=== PATIENT | female | born 1970 | race American Indian/Alaskan Native ===

== ENCOUNTER 2016-09-01 16:13 | Emergency (ER) | payer MEDICAID, OTHER ==
[2016-09-01 16:24] VITALS: BP 110/71
--- NOTE | 2016-09-01 16:43 | EDM.PDOC ---
ED HPI GENERAL MEDICAL PROBLEM - General Chief Complaint: General Stated Complaint: WEAK/SICK COUPLE DAYS Time Seen by Provider: 09/01/16 16:33 Source of Information: Reports: Patient, Family History Limitations: Reports: No limitations - History of Present Illness INITIAL COMMENTS - FREE TEXT/NARRATIVE: Mom states that pt has been "feeling sick" for the past few days and not eating. States that she ate yesterday but has not eaten today. States that she just feels weak. c/o abdominal pain Onset Date: 08/28/16 Location: Reports: abdomen Quality: Reports: Ache Severity: moderate Improves with: Reports: None Worsens with: Reports: None Associated Symptoms: Reports: cough, malaise - Related Data Allergies Allergy/AdvReac Type Severity Reaction Status Date / Time Penicillins Allergy Rash Verified 09/01/16 16:18 Home Meds: Home Meds Clopidogrel [Plavix] 75 mg PO DAILY 10/27/13 [History] Docusate Sodium [Dulcolax Stool Softener] 100 mg PO DAILY 08/13/14 [History] Lisinopril [Lisinopril] 10 tab PO DAILY 08/13/14 [History] Sertraline HCl [Zoloft] 100 mg PO DAILY 08/13/14 [History] metFORMIN HCl [Metformin HCl] 1,000 mg PO QAM 08/13/14 [History] Aspirin [Halfprin] 81 mg PO DAILY 12/09/14 [History] Gabapentin [Neurontin] 100 mg PO TID 12/09/14 [History] Simvastatin [Zocor] 20 mg PO BEDTIME 12/09/14 [History] metFORMIN HCl [Metformin HCl] 500 mg PO BEDTIME 12/09/14 [History] Carvedilol 6.25 mg PO DAILY 02/27/16 [History] Cholecalciferol (Vitamin D3) [Vitamin D3] 1,000 units PO DAILY 02/27/16 [History ] Spironolactone [Aldactone] 25 mg PO DAILY 02/27/16 [History] Past Medical History HEENT History: Reports: None Cardiovascular History: Reports: CAD, High cholesterol, Hypertension, [place] Other Cardiovascular History: family says she was on blood thinners for years, also was on some experimental stem cell med they don't know all the details Other Respiratory History: since she had her stroke she smokes a "lot now" Gastrointestinal History: Reports: None Genitourinary History: Reports: UTI, recurrent 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 Musculoskeletal History: Reports: Other (see below) Other Musculoskeletal History: Pt has a history of a stroke and can not move right arm, can stand on right leg, but can not walk Neurological History: Reports: CVA, Neuropathy, diabetic, Seizure, Speech problems Psychiatric History: Reports: Anxiety, Depression Endocrine/Metabolic History: Reports: Diabetes, type II Dermatologic History: Reports: None - Past Surgical History HEENT Surgical History: Reports: None Cardiovascular Surgical History: Reports: Carotid stents GI Surgical History: Reports: None Female Surgical History: Reports: None Musculoskeletal Surgical History: Reports: Shoulder surgery Dermatological Surgical History: Reports: None Social & Family History - Family History Cardiac: Reports: Afib, CAD, Heart failure, High cholesterol, Hypertension, CT, Stent Respiratory: Reports: Asthma, COPD, Sleep apnea GI: Reports: Cholelithiasis : Reports: Renal disease/insufficiency Musculoskeletal: Reports: Arthritis Neurological: Reports: CVA Endocrine/Metabolic: Reports: Diabetes, type II, Obesity/MBI 30+ - Tobacco Use Smoking Status *Q: Never Smoker Years of Tobacco use: 24 Packs/Tins Daily: 0.5 Second Hand Smoke Exposure: No - Caffeine Use Caffeine Use: Reports: None - Alcohol Use Days Per Week of Alcohol Use: 0 - Recreational Drug Use Recreational Drug Use: No Drug Use in Last 12 Months: Yes Recreational Drug Type: Reports: Marijuana/Hashish Recreational Drug Use Frequency: Daily - Living Situation & Occupation Living situation: Reports: with family Occupation: disabled ED ROS GENERAL - Review of Systems Review Of Systems: See Below Constitutional: Reports: malaise, weakness Respiratory: Reports: Cough Cardiovascular: Reports: No symptoms GI/Abdominal: Reports: Abdominal pain Musculoskeletal: Reports: no symptoms (right sided weakenss from previous stroke ) Skin: Reports: pallor Neurological: Reports: No Symptoms ED EXAM, GENERAL - Physical Exam Exam: See Below Exam Limited By: No limitations General Appearance: alert, WD/WN, no apparent distress Eye Exam: bilateral eye: EOMI, normal inspection, PERRL Ear Exam: left ear: TM dull, right ear: TM normal, bilateral ear: auricle normal , canal normal Throat/Mouth: Normal inspection, Normal lips, Normal teeth, Normal gums, Normal oropharynx, Normal voice, No airway compromise Neck: normal inspection, supple, non-tender, full range of motion Respiratory/Chest: no respiratory distress, lungs clear, normal breath sounds, no accessory muscle use, chest non-tender Cardiovascular: normal peripheral pulses, regular rate, rhythm, no edema, no gallop, no JVD, no murmur, no rub GI/Abdominal: normal bowel sounds, soft, no organomegaly, no distention, no abnormal bruit, no mass, tender (lower abdomen) Neurological: alert, oriented, CN II-XII intact, normal cognition, normal gait, normal reflexes, no motor/sensory deficits Skin Exam: Pallor Course - Vital Signs Last Recorded V/S: Last Vital Signs Temp 97.3 F 09/01/16 16:23 Pulse 102 H 09/01/16 16:23 Resp 26 H 09/01/16 16:23 BP 110/71 09/01/16 16:23 Pulse Ox 95 09/01/16 16:23 - Orders/Labs/Meds Orders: Active Orders 24 hr Category Date Time Status CULTURE STREP A CONFIRMATION [] Stat Lab 09/01/16 17:00 Results STREP SCRN A RAPID W CULT CONF [] Stat Lab 09/01/16 17:00 Results Sodium Chloride 0.9% [Saline Flush] Med 09/01/16 16:48 Active 10 ml FLUSH ASDIRECTED PRN Saline Lock Insert [OM.PC] Stat Oth 09/01/16 16:47 Ordered Medication Orders Sodium Chloride (Saline Flush) 10 ml FLUSH ASDIRECTED PRN PRN Reason: Keep Vein Open Last Admin: 09/01/16 17:32 Dose: 10 ml Labs: Laboratory Tests 09/01/16 09/01/16 09/01/16 Range/Units 17:00 17:00 17:00 WBC 18.3 H (5.0-10.0) 10^3/uL RBC 4.05 L (4.2-5.4) 10^6/uL Hgb 8.9 L (12.0-16.0) g/dL Hct 28.3 L (37.0-47.0) % MCV 69.9 L (80-100) fL MCH 22.0 L (27.0-34.0) pg MCHC 31.4 L (33.0-35.0) g/dL Plt Count 286 (150-450) 10^3/uL Neut % (Auto) 85.8 H (42.2-75.2) % Lymph % (Auto) 7.3 L (20.5-50.1) % [place] % (Auto) 6.6 (2-8) % Eos % (Auto) 0.1 L (1.0-3.0) % Baso % (Auto) 0.2 (0.0-1.0) % PT 10.4 (9.0-12.0) SEC INR 1.0 (0.9-1.2) APTT 24.6 (22.0-34.0) SEC Sodium 132 L (135-145) mmol/L Potassium 3.7 (3.6-5.0) mmol/L Chloride 97 L (101-111) mmol/L Carbon Dioxide 20.0 L (21.0-31.0) mmol/L Anion Gap 18.7 BUN 12 (7-18) mg/dL Creatinine 0.7 (0.6-1.3) mg/dL Est Cr Clr Drug Dosing TNP Estimated GFR (MDRD) > 60 Glucose 239 H (74-105) mg/dL Calcium 8.6 (8.4-10.2) mg/dl HCG, Qual Negative Urine Color (YELLOW) Urine Appearance (CLEAR) Urine pH (5.0-9.0) Ur Specific [place] (1.005-1.030) Urine Protein (NEGATIVE) Urine Glucose (UA) (NEGATIVE) Urine Ketones (NEGATIVE) Urine Occult Blood (NEGATIVE) Urine Nitrite (NEGATIVE) Urine Bilirubin (NEGATIVE) Urine Urobilinogen (0.2-1.0) mg/dL Ur Leukocyte Esterase (NEGATIVE) Urine RBC /HPF Urine WBC (0-5/HPF) /HPF Ur Epithelial Cells /HPF Urine Bacteria (0-FEW/HPF) /HPF 09/01/16 Range/Units 17:15 WBC (5.0-10.0) 10^3/uL RBC (4.2-5.4) 10^6/uL Hgb (12.0-16.0) g/dL Hct (37.0-47.0) % MCV (80-100) fL MCH (27.0-34.0) pg MCHC (33.0-35.0) g/dL Plt Count (150-450) 10^3/uL Neut % (Auto) (42.2-75.2) % Lymph % (Auto) (20.5-50.1) % [place] % (Auto) (2-8) % Eos % (Auto) (1.0-3.0) % Baso % (Auto) (0.0-1.0) % PT (9.0-12.0) SEC INR (0.9-1.2) APTT (22.0-34.0) SEC Sodium (135-145) mmol/L Potassium (3.6-5.0) mmol/L Chloride (101-111) mmol/L Carbon Dioxide (21.0-31.0) mmol/L Anion Gap BUN (7-18) mg/dL Creatinine (0.6-1.3) mg/dL Est Cr Clr Drug Dosing Estimated GFR (MDRD) Glucose (74-105) mg/dL Calcium (8.4-10.2) mg/dl HCG, Qual Urine Color Yellow (YELLOW) Urine Appearance Cloudy (CLEAR) Urine pH 5.5 (5.0-9.0) Ur Specific [place] 1.025 (1.005-1.030) Urine Protein 100 H (NEGATIVE) Urine Glucose (UA) 500 H (NEGATIVE) Urine Ketones Negative (NEGATIVE) Urine Occult Blood Moderate H (NEGATIVE) Urine Nitrite Positive H (NEGATIVE) Urine Bilirubin Negative (NEGATIVE) Urine Urobilinogen 1.0 (0.2-1.0) mg/dL Ur Leukocyte Esterase Small H (NEGATIVE) Urine RBC 0-5 /HPF Urine WBC >100 H (0-5/HPF) /HPF Ur Epithelial Cells Moderate H /HPF Urine Bacteria Many H (0-FEW/HPF) /HPF Meds: Medications Generic Name Dose Route Start Last Admin Trade Name Freq PRN Reason Stop Dose Admin Sodium Chloride 10 ml 09/01/16 16:48 09/01/16 17:32 Saline Flush FLUSH 10 ml ASDIRECTED PRN Administration Keep Vein Open Discontinued Medications Generic Name Dose Route Start Last Admin Trade Name Freq PRN Reason Stop Dose Admin Sodium Chloride 1,000 mls @ 999 mls/hr 09/01/16 16:48 09/01/16 17:33 Normal Saline IV 09/01/16 17:48 999 mls/hr .BOLUS ONE Administration Iopamidol 100 ml 09/01/16 16:59 09/01/16 17:12 Isovue-300 (61%) IVPUSH 09/01/16 17:00 100 ml ONETIME ONE Administration Ketorolac Tromethamine 30 mg 09/01/16 16:48 09/01/16 17:32 Toradol IVPUSH 09/01/16 16:49 30 mg ONETIME ONE Administration - Radiology Interpretation Free Text/Narrative:: 1.5 cm thrombus to left ventricle per [facility]. Known thrombus per [facility]. Departure - Departure Time of Disposition: 18:34 Disposition: Home, Self-Care 01 Condition: good Clinical Impression: UTI, Urinary tract infectious disease UTI (urinary tract infection) Qualifiers: Urinary tract infection type: acute cystitis Hematuria presence: without hematuria Qualified Code(s): N30.00 - Acute cystitis without hematuria Instructions: Urinary Tract Infection, Adult Forms: ED Department Discharge Additional Instructions: take macrobid twice a day for 1 week. Drink plenty of fluids to help flush the bacteria. Take motrin for pain. follow up in 1 week at clinic. return for worsening symptoms - My Orders Last 24 Hours: My Active Orders 09/01/16 16:47 Saline Lock Insert [OM.PC] Stat 09/01/16 16:48 Sodium Chloride 0.9% [Saline Flush] 10 ml FLUSH ASDIRECTED PRN 09/01/16 17:00 CULTURE STREP A CONFIRMATION [RM] Stat STREP SCRN A RAPID W CULT CONF [RM] Stat - Assessment/Plan Last 24 Hours: My Active Orders 09/01/16 16:47 Saline Lock Insert [OM.PC] Stat 09/01/16 16:48 Sodium Chloride 0.9% [Saline Flush] 10 ml FLUSH ASDIRECTED PRN 09/01/16 17:00 CULTURE STREP A CONFIRMATION [RM] Stat STREP SCRN A RAPID W CULT CONF [RM] Stat
[2016-09-01] MEDS ORDERED: Sodium Chloride 0.9% 10 ML Syringe FLUSH PRN (16:48)
[2016-09-01] MEDS ORDERED: Sodium Chloride 0.9% 1,000 ML IV ONE (16:48)
[2016-09-01] MEDS ORDERED: Ketorolac 30 MG/ML SDV IVPUSH ONE (16:48)
[2016-09-01] MEDS ORDERED: Iopamidol 612 MG/ML 100 ML Bottle IVPUSH ONE (16:59)
[2016-09-01 17:25] LABS: CHLORIDE,CL 97 mmol/L (101-111); SODIUM,NA 132 mmol/L (135-145)
== END 2016-09-01 18:56 | disposition home or self-care (01) ==
LOC: DL.ED 16:13
DX: N30.00 Acute cystitis without hematuria (principal); I25.10 Atherosclerotic heart disease of native coronary artery without angina pectoris; E78.00 Pure hypercholesterolemia, unspecified; I25.2 Old myocardial infarction; F41.9 Anxiety disorder, unspecified; F32.9 Major depressive disorder, single episode, unspecified; E11.9 Type 2 diabetes mellitus without complications; Z98.890 Other specified postprocedural states; Z88.0 Allergy status to penicillin; Z79.899 Other long term (current) drug therapy; Z79.82 Long term (current) use of aspirin
CPT/HCPCS: 36415; 71260; 74177; 80048; 81001; 84703; 85025; 85610; 85730; 87081; 87430; 87804; 96361; 96374; 99285; J1885; J7030; J7050; Q9967

== ENCOUNTER 2016-09-14 01:14 | Emergency (ER) | payer MEDICAID, OTHER ==
[2016-09-14] MEDS ORDERED: Sodium Chloride 0.9% 1,000 ML IV ONE (01:56)
[2016-09-14 02:13] LABS: CHLORIDE,CL 99 mmol/L (101-111); SODIUM,NA 134 mmol/L (135-145)
[2016-09-14] MEDS ORDERED: Levofloxacin/Dextrose 5%-Water 500 MG in Premix Bag 1 BAG IV ONE (02:29)
[2016-09-14] MEDS ORDERED: Famotidine 20 MG/2 ML SDV IVPUSH ONE (02:30)
--- NOTE | 2016-09-14 02:31 | EDM.PDOC ---
ED HISTORY OF PRESENT ILLNESS - General Chief Complaint: Chest Pain Stated Complaint: CHEST PAIN, WEAK Time Seen by Provider: 09/14/16 01:25 Source of Information: Reports: Patient, Family, Old records History Limitations: Reports: Physical impairment (Prior CVA, Difficulty with word find, limited verbalization) - History of Present Illness INITIAL COMMENTS - FREE TEXT/NARRATIVE: Ed with Mother with initial c/o of chest pain at home, able to describe as burning in chest, Mother notes seen in ED 2 weeks ago and diagnosed with UTI and placed on Macrobid. Decreased appetite. Increasing weakness over past 2 weeks. Patient nods yes with question of stools being black. Mom notes intermittent c/o of abdominal pain since last visit and no change since being on abx. No fever but always cold. Smoker since CVA. Remote hx of AAA on blood thinners for 4 years then few months after then CVA due to "clot in back of head " and heart attack. Stents in heart. CT of chest done on 09/01 notes 1.5cm thrombus in left ventricle apex. Only comparison available of Chest in from 2006. No available echo. Mom does not recall being told of clot in heart prior. Mother sets up medications for patient and monitors, States patient is compliant with meds. Patient points to epigastric and lower abdominal area for pain location. Mom reported last nca certified concierge recommended pacemaker for patient due to "weakness" admits not following up as patient did not want to have pacemaker. Seizure hx after CVA. Last one year ago. No seizure meds. Timing/Duration: Reports: Day(s): Severity: moderate Location, General: Reports: chest, abdomen Quality: Reports: Burning Worsens with: Reports: Eating Associated Symptoms (General): Reports: chest pain, cough (2 weeks ago), fever/ chills (chills), loss of appetite, malaise, weakness - Related Data Allergies/ADRs: Allergies Allergy/AdvReac Type Severity Reaction Status Date / Time Penicillins Allergy Rash Verified 09/14/16 01:29 Home Meds: Home Meds Clopidogrel [Plavix] 75 mg PO DAILY 10/27/13 [History] Docusate Sodium [Dulcolax Stool Softener] 100 mg PO DAILY 08/13/14 [History] Lisinopril [Lisinopril] 10 tab PO DAILY 08/13/14 [History] Sertraline HCl [Zoloft] 100 mg PO DAILY 08/13/14 [History] metFORMIN HCl [Metformin HCl] 1,000 mg PO QAM 08/13/14 [History] Aspirin [Halfprin] 81 mg PO DAILY 12/09/14 [History] Gabapentin [Neurontin] 100 mg PO TID 12/09/14 [History] Simvastatin [Zocor] 20 mg PO BEDTIME 12/09/14 [History] metFORMIN HCl [Metformin HCl] 500 mg PO BEDTIME 12/09/14 [History] Carvedilol 6.25 mg PO DAILY 02/27/16 [History] Cholecalciferol (Vitamin D3) [Vitamin D3] 1,000 units PO DAILY 02/27/16 [History ] Spironolactone [Aldactone] 25 mg PO DAILY 02/27/16 [History] Past Medical History HEENT History: Reports: None Cardiovascular History: Reports: CAD, High cholesterol, Hypertension, [place] Other Cardiovascular History: family says she was on blood thinners for years, also was on some experimental stem cell med they don't know all the details Other Respiratory History: since she had her stroke she smokes a "lot now" Gastrointestinal History: Reports: None Genitourinary History: Reports: UTI, recurrent 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 Musculoskeletal History: Reports: Other (see below) Other Musculoskeletal History: Pt has a history of a stroke and can not move right arm, can stand on right leg, but can not walk Neurological History: Reports: CVA, Neuropathy, diabetic, Seizure, Speech problems Psychiatric History: Reports: Anxiety, Depression Endocrine/Metabolic History: Reports: Diabetes, type II Dermatologic History: Reports: None - Past Surgical History HEENT Surgical History: Reports: None Cardiovascular Surgical History: Reports: Carotid stents GI Surgical History: Reports: None Female Surgical History: Reports: None Musculoskeletal Surgical History: Reports: Shoulder surgery Dermatological Surgical History: Reports: None Social & Family History - Family History Family Medical History: Noncontributory Cardiac: Reports: Afib, CAD, Heart failure, High cholesterol, Hypertension, [place], Stent Respiratory: Reports: Asthma, COPD, Sleep apnea GI: Reports: Cholelithiasis : Reports: Renal disease/insufficiency Musculoskeletal: Reports: Arthritis Neurological: Reports: CVA Endocrine/Metabolic: Reports: Diabetes, type II, Obesity/MBI 30+ - Tobacco Use Smoking Status *Q: Current Every Day Smoker Years of Tobacco use: 3 Packs/Tins Daily: 20 Second Hand Smoke Exposure: No - Caffeine Use Caffeine Use: Reports: Soda - Alcohol Use Days Per Week of Alcohol Use: 0 - Recreational Drug Use Recreational Drug Use: Yes Drug Use in Last 12 Months: Yes Recreational Drug Type: Reports: Marijuana/Hashish Recreational Drug Use Frequency: Daily Recreational Drug Last Use: 08/31/16 - Living Situation & Occupation Living situation: Reports: with family Occupation: disabled ED ROS GENERAL - Review of Systems Review Of Systems: See Below Constitutional: Reports: chills, weakness, decreased appetite HEENT: Reports: No symptoms Respiratory: Reports: Shortness of Breath, Cough (reolving presnt 2 weeks ago) Cardiovascular: Reports: Chest pain ( burning), Other (dizzy when stand up) Endocrine: Reports: high glucose GI/Abdominal: Reports: Abdominal pain, Black stool, Decreased appetite. Denies : Hematemesis, Nausea : Reports: no symptoms Musculoskeletal: Reports: no symptoms Skin: Reports: pallor Neurological: Reports: Dizziness, Pre-Existing Deficit, Seizure (hx last one year ago), Trouble Speaking, Difficulty Walking, Weakness Hematologic/Lymphatic: Reports: no symptoms ED EXAM, GENERAL - Physical Exam Exam: See Below Exam Limited By: Language barrier General Appearance: alert, mild distress Eye Exam: bilateral eye: EOMI Ears: normal external exam, normal TMs Nose: normal inspection Throat/Mouth: Normal inspection. No: Normal teeth (absent) Head: atraumatic, normocephalic Neck: normal inspection Respiratory/Chest: no respiratory distress, lungs clear, decreased breath sounds (bilateral bases), other (edyta ). No: rales, rhonchi, wheezing Cardiovascular: regular rate, rhythm, no murmur GI/Abdominal: normal bowel sounds, soft, tender (epigastric, suprapubic) (Female) Exam: Other (perirectal area read) Rectal (Female) Exam: Normal rectal tone, Heme - stool Back Exam: normal inspection Extremities: normal range of motion (left), no pedal edema, limited range of motion (right upper) Neurological: alert, oriented, slow to respond, abnormal gait, other (prior speech deficit, contracture right arm, right leg weakness) Psychiatric: flat affect Skin Exam: Warm, Dry, No rash, Pallor Lymphatic: no adenopathy EKG INTERPRETATION Rhythm: NSR Comparison: no change Course - Vital Signs Last Recorded V/S: Last Vital Signs Temp 96.9 F 09/14/16 04:24 Pulse 85 09/14/16 04:24 Resp 21 H 09/14/16 04:24 BP 88/51 L 09/14/16 04:24 Pulse Ox 98 09/14/16 04:24 - Orders/Labs/Meds Orders: Active Orders 24 hr Category Date Time Status CULTURE BLOOD [BC] Stat Lab 09/14/16 01:55 Received CULTURE URINE [RM] Stat Lab 09/14/16 01:50 Received Sodium Chloride 0.9% [Normal Saline] 1,000 ml Med 09/14/16 01:56 Active IV .BOLUS Medication Orders Sodium Chloride (Normal Saline) 1,000 mls @ 150 mls/hr IV .BOLUS ONE Stop: 09/14/16 08:35 Last Admin: 09/14/16 01:59 Dose: 150 mls/hr Labs: Laboratory Tests 09/14/16 09/14/16 09/14/16 Range/Units 01:39 01:39 01:39 WBC 11.4 H (5.0-10.0) 10^3/uL RBC 4.33 (4.2-5.4) 10^6/uL Hgb 9.4 L (12.0-16.0) g/dL Hct 30.9 L (37.0-47.0) % MCV 71.4 L (80-100) fL MCH 21.7 L (27.0-34.0) pg MCHC 30.4 L (33.0-35.0) g/dL Plt Count 467 H (150-450) 10^3/uL Neut % (Auto) 77.6 H (42.2-75.2) % Lymph % (Auto) 16.3 L (20.5-50.1) % [place] % (Auto) 5.2 (2-8) % Eos % (Auto) 0.7 L (1.0-3.0) % Baso % (Auto) 0.2 (0.0-1.0) % PT 11.0 (9.0-12.0) SEC INR 1.1 (0.9-1.2) D-Dimer, Quantitative (0-400) ng/mL Sodium 134 L (135-145) mmol/L Potassium 3.7 (3.6-5.0) mmol/L Chloride 99 L (101-111) mmol/L Carbon Dioxide 25.0 (21.0-31.0) mmol/L Anion Gap 13.7 BUN 16 (7-18) mg/dL Creatinine 0.9 (0.6-1.3) mg/dL Est Cr Clr Drug Dosing TNP Estimated GFR (MDRD) > 60 BUN/Creatinine Ratio 17.77 Glucose 219 H (74-105) mg/dL Lactic Acid (0.5-2.2) mmol/L Calcium 9.1 (8.4-10.2) mg/dl Magnesium 1.6 L (1.8-2.5) mg/dL Total Bilirubin 0.3 (0.2-1.0) mg/dL AST 18 (10-42) IU/L ALT 15 (10-60) IU/L Alkaline Phosphatase 93 (42-121) IU/L Creatine Kinase 21 L (26-174) IU/L Troponin I < 0.02 (0.00-0.02) ng/ml Total Protein 8.6 H (6.7-8.2) g/dl Albumin 3.3 (3.2-5.5) g/dl Globulin 5.3 Albumin/Globulin Ratio 0.62 Amylase 66 (28-100) U/L Lipase 43 (22-51) U/L Urine Color (YELLOW) Urine Appearance (CLEAR) Urine pH (5.0-9.0) Ur Specific [place] (1.005-1.030) Urine Protein (NEGATIVE) Urine Glucose (UA) (NEGATIVE) Urine Ketones (NEGATIVE) Urine Occult Blood (NEGATIVE) Urine Nitrite (NEGATIVE) Urine Bilirubin (NEGATIVE) Urine Urobilinogen (0.2-1.0) mg/dL Ur Leukocyte Esterase (NEGATIVE) Urine RBC /HPF Urine WBC (0-5/HPF) /HPF Ur Epithelial Cells /HPF Urine Bacteria (0-FEW/HPF) /HPF 09/14/16 09/14/16 09/14/16 Range/Units 01:39 01:50 01:55 WBC (5.0-10.0) 10^3/uL RBC (4.2-5.4) 10^6/uL Hgb (12.0-16.0) g/dL Hct (37.0-47.0) % MCV (80-100) fL MCH (27.0-34.0) pg MCHC (33.0-35.0) g/dL Plt Count (150-450) 10^3/uL Neut % (Auto) (42.2-75.2) % Lymph % (Auto) (20.5-50.1) % [place] % (Auto) (2-8) % Eos % (Auto) (1.0-3.0) % Baso % (Auto) (0.0-1.0) % PT (9.0-12.0) SEC INR (0.9-1.2) D-Dimer, Quantitative 1270 H (0-400) ng/mL Sodium (135-145) mmol/L Potassium (3.6-5.0) mmol/L Chloride (101-111) mmol/L Carbon Dioxide (21.0-31.0) mmol/L Anion Gap BUN (7-18) mg/dL Creatinine (0.6-1.3) mg/dL Est Cr Clr Drug Dosing Estimated GFR (MDRD) BUN/Creatinine Ratio Glucose (74-105) mg/dL Lactic Acid 2.7 H (0.5-2.2) mmol/L Calcium (8.4-10.2) mg/dl Magnesium (1.8-2.5) mg/dL Total Bilirubin (0.2-1.0) mg/dL AST (10-42) IU/L ALT (10-60) IU/L Alkaline Phosphatase (42-121) IU/L Creatine Kinase (26-174) IU/L Troponin I (0.00-0.02) ng/ml Total Protein (6.7-8.2) g/dl Albumin (3.2-5.5) g/dl Globulin Albumin/Globulin Ratio Amylase (28-100) U/L Lipase (22-51) U/L Urine Color Yellow (YELLOW) Urine Appearance Cloudy (CLEAR) Urine pH 5.0 (5.0-9.0) Ur Specific [place] 1.025 (1.005-1.030) Urine Protein 100 H (NEGATIVE) Urine Glucose (UA) Negative (NEGATIVE) Urine Ketones Negative (NEGATIVE) Urine Occult Blood Moderate H (NEGATIVE) Urine Nitrite Positive H (NEGATIVE) Urine Bilirubin Small H (NEGATIVE) Urine Urobilinogen 0.2 (0.2-1.0) mg/dL Ur Leukocyte Esterase Moderate H (NEGATIVE) Urine RBC 10-20 H /HPF Urine WBC 50-75 H (0-5/HPF) /HPF Ur Epithelial Cells Many H /HPF Urine Bacteria Many H (0-FEW/HPF) /HPF Meds: Medications Generic Name Dose Route Start Last Admin Trade Name Freq PRN Reason Stop Dose Admin Sodium Chloride 1,000 mls @ 150 mls/hr 09/14/16 01:56 09/14/16 01:59 Normal Saline IV 09/14/16 08:35 150 mls/hr .BOLUS ONE Administration Discontinued Medications Generic Name Dose Route Start Last Admin Trade Name Freq PRN Reason Stop Dose Admin Famotidine 20 mg 09/14/16 02:30 09/14/16 02:35 Pepcid IVPUSH 09/14/16 02:31 20 mg ONETIME ONE Administration Levofloxacin/Dextrose 500 mg/ 100 mls @ 100 mls/hr 09/14/16 02:29 09/14/16 02 :35 Premix IV 09/14/16 03:28 100 mls/hr ONETIME ONE Administration Iopamidol 100 ml 09/14/16 03:29 09/14/16 04:00 Isovue-370 (76%) IVPUSH 09/14/16 03:30 64 ml ONETIME ONE Administration - Radiology Interpretation Free Text/Narrative:: CXR negative, CTA due to elevated D-dimer recommendation for cardiac echo. Prior 1.5 left ventricle thrombus not clearly visualized on today's. Rad report noted change in area size from 1.4 to 2.4cm . Verbal report unable to determine if wall thickening or extension of thrombus. Departure - Departure Time of Disposition: 05:18 Disposition: DC/Tfer to Acute Hospital 02 Reason for Transfer *Q: Other Condition: undetermined Clinical Impression: Elevated d-dimer, [place] infection of genital region, Abnormal chest CT, History of CVA with residual deficit, Hx of myocardial infarction, History of seizures UTI (urinary tract infection) Qualifiers: Urinary tract infection type: acute cystitis Hematuria presence: without hematuria Qualified Code(s): N30.00 - Acute cystitis without hematuria Anemia Qualifiers: Anemia type: unspecified type Qualified Code(s): D64.9 - Anemia, unspecified Diabetes Qualifiers: Diabetes mellitus type: type 2 Diabetes mellitus complication status: with unspecified complications Diabetes mellitus penitentiary insulin use: without rodent exterminator use Qualified Code(s): E11.8 - Type 2 diabetes mellitus with unspecified complications Forms: ED Department Discharge - My Orders Last 24 Hours: My Active Orders 09/14/16 01:50 CULTURE URINE [RM] Stat 09/14/16 01:55 CULTURE BLOOD [BC] Stat 09/14/16 01:56 Sodium Chloride 0.9% [Normal Saline] 1,000 ml IV .BOLUS - Assessment/Plan Last 24 Hours: My Active Orders 09/14/16 01:50 CULTURE URINE [RM] Stat 09/14/16 01:55 CULTURE BLOOD [BC] Stat 09/14/16 01:56 Sodium Chloride 0.9% [Normal Saline] 1,000 ml IV .BOLUS
[2016-09-14] MEDS ORDERED: Iopamidol 755 Mg/ML 100 ML Bottle IVPUSH ONE (03:29)
[2016-09-14 04:48] VITALS: BP 95/51
[2016-09-14] MEDS ORDERED: Sodium Chloride 0.9% 1,000 ML IV SCH (05:30)
--- NOTE | 2016-09-14 13:23 | EKG ---
09/14/2016- ALIN FUCHS - EKG done on 45-year-old female showing sinus rhythm with heart rate of 81 beats per minute. T-wave inversions noted on V2 and V3 with ST changes on V5, V6, and lateral leads. Normal axis. Prolonged QT interval at 493. [facility] /[id number]
== END 2016-09-14 05:47 ==
LOC: DL.ED 01:14
DX: N30.00 Acute cystitis without hematuria (principal); E11.8 Type 2 diabetes mellitus with unspecified complications; D64.9 Anemia, unspecified; B37.89 Other sites of candidiasis; R93.8 Abnormal findings on diagnostic imaging of other specified body structures; R79.89 Other specified abnormal findings of blood chemistry; I25.2 Old myocardial infarction; I25.10 Atherosclerotic heart disease of native coronary artery without angina pectoris; E78.00 Pure hypercholesterolemia, unspecified; I10 Essential (primary) hypertension; F41.9 Anxiety disorder, unspecified; F32.9 Major depressive disorder, single episode, unspecified; F17.210 Nicotine dependence, cigarettes, uncomplicated; Z86.73 Personal history of transient ischemic attack (TIA), and cerebral infarction without residual deficits; Z88.0 Allergy status to penicillin; Z79.84 Long term (current) use of oral hypoglycemic drugs; Z79.82 Long term (current) use of aspirin; Z79.899 Other long term (current) drug therapy; Z87.440 Personal history of urinary (tract) infections
CPT/HCPCS: 36415; 71010; 71275; 80053; 81001; 82150; 82272; 82550; 83605; 83690; 83735; 84484; 85025; 85379; 85610; 87040; 87086; 96365; 96366; 96375; 99285; J1956; J7030; Q9967; 87088; 87186; S0028

== ENCOUNTER 2017-07-26 12:09 | Emergency (ER) | payer MEDICAID, OTHER ==
--- NOTE | 2017-07-26 12:48 | EDM.PDOC ---
ED HPI GENERAL MEDICAL PROBLEM - General Chief Complaint: General Stated Complaint: Anemia. IN BY AMB FROM [facility] [place] Time Seen by Provider: 07/26/17 12:35 Source of Information: Reports: Patient History Limitations: Reports: No Limitations - History of Present Illness INITIAL COMMENTS - FREE TEXT/NARRATIVE: This 46 yo female patient was brought to the ED by [facility] due to a hemoglobin of 6.2 identified at the [facility]. The patient was seen by Dr. 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 According to the [facility], the patient is currently on both Plavix and Zeralto for anticoagulation. The patient is alert and responsive. The patient follows commands well. Onset: Unknown/Unsure Duration: Other Location: Reports: Generalized Severity: Moderate Improves with: Reports: None Worsens with: Reports: None Associated Symptoms: Reports: No Other Symptoms Right Abdomen Pain Score (Numeric/FACES): 8 - Related Data Allergies Allergy/AdvReac Type Severity Reaction Status Date / Time Penicillins Allergy Rash Verified 09/14/16 01:29 Home Meds: Home Meds Clopidogrel [Plavix] 75 mg PO DAILY 10/27/13 [History] Docusate Sodium [Dulcolax Stool Softener] 100 mg PO DAILY 08/13/14 [History] Lisinopril [Lisinopril] 10 tab PO DAILY 08/13/14 [History] Sertraline HCl [Zoloft] 100 mg PO DAILY 08/13/14 [History] metFORMIN HCl [Metformin HCl] 1,000 mg PO QAM 08/13/14 [History] Aspirin [Halfprin] 81 mg PO DAILY 12/09/14 [History] Gabapentin [Neurontin] 100 mg PO TID 12/09/14 [History] Simvastatin [Zocor] 20 mg PO BEDTIME 12/09/14 [History] metFORMIN HCl [Metformin HCl] 500 mg PO BEDTIME 12/09/14 [History] Carvedilol 6.25 mg PO DAILY 02/27/16 [History] Cholecalciferol (Vitamin D3) [Vitamin D3] 1,000 units PO DAILY 02/27/16 [History ] Spironolactone [Aldactone] 25 mg PO DAILY 02/27/16 [History] Past Medical History HEENT History: Reports: None Cardiovascular History: Reports: CAD, High Cholesterol, Hypertension, [place] Other Cardiovascular History: family says she was on blood thinners for years, also was on some experimental stem cell med they don't know all the details Other Respiratory History: since she had her stroke she smokes a "lot now" Gastrointestinal History: Reports: None Genitourinary History: Reports: UTI, Recurrent [employer]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 Musculoskeletal History: Reports: Other (See Below) Other Musculoskeletal History: Pt has a history of a stroke and can not move right arm, can stand on right leg, but can not walk Neurological History: Reports: CVA, Neuropathy, Diabetic, Seizure, Speech Problems Psychiatric History: Reports: Anxiety, Depression Endocrine/Metabolic History: Reports: Diabetes, Type II Dermatologic History: Reports: None - Past Surgical History Cardiovascular Surgical History: Reports: Carotid Stents Musculoskeletal Surgical History: Reports: Shoulder Surgery Social & Family History - Family History Family Medical History: Noncontributory Cardiac: Reports: Afib, CAD, Heart Failure, High Cholesterol, Hypertension, [place], Stent Respiratory: Reports: Asthma, COPD, Sleep Apnea GI: Reports: Cholelithiasis : Reports: Renal Disease/Insufficiency Musculoskeletal: Reports: Arthritis Neurological: Reports: CVA Endocrine/Metabolic: Reports: Diabetes, type II, Obesity/MBI 30+ - Tobacco Use Smoking Status *Q: Current Every Day Smoker Years of Tobacco use: 3 Packs/Tins Daily: 20 Second Hand Smoke Exposure: No - Caffeine Use Caffeine Use: Reports: Soda - Alcohol Use Days Per Week of Alcohol Use: 0 - Recreational Drug Use Recreational Drug Use: Yes Drug Use in Last 12 Months: Yes Recreational Drug Type: Reports: Marijuana/Hashish Recreational Drug Use Frequency: Daily Recreational Drug Last Use: 08/31/16 - Living Situation & Occupation Living situation: Reports: with Family Occupation: Disabled ED ROS GENERAL - Review of Systems Review Of Systems: ROS reveals no pertinent complaints other than HPI. ED EXAM, GENERAL - Physical Exam Exam: See Below Exam Limited By: Other (expresive dysphasia (difficulties coming up with verbal responses)) General Appearance: Alert, WD/WN, No Apparent Distress Eye Exam: Bilateral Eye: EOMI, Normal Inspection, PERRL Ears: Normal External Exam, Normal Canal, Hearing Grossly Normal, Normal TMs Nose: Normal Inspection, Normal Mucosa, No Blood Throat/Mouth: Other (right sided facial droop) Head: Atraumatic, Normocephalic Neck: Normal Inspection, Supple, Non-Tender, Full Range of Motion Respiratory/Chest: No Respiratory Distress, Lungs Clear, Normal Breath Sounds, No Accessory Muscle Use, Chest Non-Tender Cardiovascular: Normal Peripheral Pulses, Regular Rate, Rhythm, No Edema, No Gallop, No JVD, No Murmur, No Rub GI/Abdominal: Normal Bowel Sounds, Soft, Non-Tender, No Organomegaly, No Distention, No Abnormal Bruit, No Mass (Female) Exam: Deferred Extremities: Other (right arm paralysis (post CVA), right leg weakness (but able to lift right leg off bed), patient reports no sensation in right extremities) Neurological: Alert, Oriented Psychiatric: Flat Affect Skin Exam: Warm, Dry, Intact, Normal Color, No Rash Lymphatic: No Adenopathy Course - Vital Signs Last Recorded V/S: Last Vital Signs Temp 36.9 C 07/26/17 12:09 Pulse 95 07/26/17 12:09 Resp 18 07/26/17 12:09 BP 108/65 07/26/17 12:09 Pulse Ox 95 07/26/17 12:09 - Orders/Labs/Meds Orders: Active Orders 24 hr Category Date Time Status DRUG SCREEN URINE BIORAD [URCHEM] Stat Lab 07/26/17 12:33 Ordered RED BLOOD CELLS LP [BBK] Stat Lab 07/26/17 14:01 Ordered TYPE AND SCREEN [BBK] Routine Lab 07/26/17 12:34 Results UA W/MICROSCOPIC [URIN] Stat Lab 07/26/17 12:33 Ordered Labs: Laboratory Tests 07/26/17 07/26/17 07/26/17 Range/Units 12:34 12:34 12:34 WBC 6.7 (5.0-10.0) 10^3/uL RBC 3.36 L (4.2-5.4) 10^6/uL Hgb 6.0 L* D (12.0-16.0) g/dL Hct 22.4 L (37.0-47.0) % MCV 66.7 L D (80-100) fL MCH 17.9 L (27.0-34.0) pg MCHC 26.8 L (33.0-35.0) g/dL Plt Count 325 D (150-450) 10^3/uL Neut % (Auto) 68.4 (42.2-75.2) % Lymph % (Auto) 22.9 (20.5-50.1) % Kane % (Auto) 6.8 (2-8) % Eos % (Auto) 1.6 (1.0-3.0) % Baso % (Auto) 0.3 (0.0-1.0) % PT 9.9 (9.0-12.0) SEC INR 1.0 (0.9-1.2) Sodium 135 (135-145) mmol/L Potassium 3.6 (3.6-5.0) mmol/L Chloride 101 (101-111) mmol/L Carbon Dioxide 24.0 (21.0-31.0) mmol/L Anion Gap 13.6 BUN 9 (7-18) mg/dL Creatinine 0.4 L (0.6-1.3) mg/dL Est Cr Clr Drug Dosing 166.27 mL/min Estimated GFR (MDRD) > 60 BUN/Creatinine Ratio 22.50 Glucose 141 H (74-105) mg/dL Calcium 8.5 (8.4-10.2) mg/dl Total Bilirubin 0.7 (0.2-1.0) mg/dL AST 34 (10-42) IU/L ALT 10 (10-60) IU/L Alkaline Phosphatase 51 (42-121) IU/L Total Protein 7.5 (6.7-8.2) g/dl Albumin 3.5 (3.2-5.5) g/dl Globulin 4.0 Albumin/Globulin Ratio 0.88 Blood Type Gel Antibody Screen Crossmatch 07/26/17 Range/Units 12:34 WBC (5.0-10.0) 10^3/uL RBC (4.2-5.4) 10^6/uL Hgb (12.0-16.0) g/dL Hct (37.0-47.0) % MCV (80-100) fL MCH (27.0-34.0) pg MCHC (33.0-35.0) g/dL Plt Count (150-450) 10^3/uL Neut % (Auto) (42.2-75.2) % Lymph % (Auto) (20.5-50.1) % Kane % (Auto) (2-8) % Eos % (Auto) (1.0-3.0) % Baso % (Auto) (0.0-1.0) % PT (9.0-12.0) SEC INR (0.9-1.2) Sodium (135-145) mmol/L Potassium (3.6-5.0) mmol/L Chloride (101-111) mmol/L Carbon Dioxide (21.0-31.0) mmol/L Anion Gap BUN (7-18) mg/dL Creatinine (0.6-1.3) mg/dL Est Cr Clr Drug Dosing mL/min Estimated GFR (MDRD) BUN/Creatinine Ratio Glucose (74-105) mg/dL Calcium (8.4-10.2) mg/dl Total Bilirubin (0.2-1.0) mg/dL AST (10-42) IU/L ALT (10-60) IU/L Alkaline Phosphatase (42-121) IU/L Total Protein (6.7-8.2) g/dl Albumin (3.2-5.5) g/dl Globulin Albumin/Globulin Ratio Blood Type A POSITIVE Gel Antibody Screen Negative Crossmatch See Detail Departure - Departure Time of Disposition: 14:12 Disposition: DC/Tfer to Acute Hospital 02 Condition: Poor Clinical Impression: Anticoagulant long-term use Anemia Qualifiers: Anemia type: unspecified type Qualified Code(s): D64.9 - Anemia, unspecified - Discharge Information Forms: Interfacility Transfer EMTALA Care Plan Goals: Discussed the patient's history, examination and lab results with Dr. Youssef (Hospitalist with [facility] in [place]). Dr. Youssef accepted the patient for continued evaluation and further management. The patient will be transferred by [facility]. 1 unit of blood was started prior to transport. - My Orders Last 24 Hours: My Active Orders 07/26/17 12:33 DRUG SCREEN URINE BIORAD [URCHEM] Stat UA W/MICROSCOPIC [URIN] Stat 07/26/17 12:34 TYPE AND SCREEN [BBK] Routine 07/26/17 14:01 RED BLOOD CELLS LP [BBK] Stat - Assessment/Plan Last 24 Hours: My Active Orders 07/26/17 12:33 DRUG SCREEN URINE BIORAD [URCHEM] Stat UA W/MICROSCOPIC [URIN] Stat 07/26/17 12:34 TYPE AND SCREEN [BBK] Routine 07/26/17 14:01 RED BLOOD CELLS LP [BBK] Stat
[2017-07-26 13:04] LABS: CHLORIDE,CL 101 mmol/L (101-111); SODIUM,NA 135 mmol/L (135-145)
[2017-07-26 15:04] VITALS: BP 110/58
== END 2017-07-26 15:04 ==
LOC: DL.ED 12:09
DX: D64.9 Anemia, unspecified (principal); E78.00 Pure hypercholesterolemia, unspecified; I10 Essential (primary) hypertension; I25.2 Old myocardial infarction; E11.9 Type 2 diabetes mellitus without complications; E66.9 Obesity, unspecified; F17.210 Nicotine dependence, cigarettes, uncomplicated; Z79.01 Long term (current) use of anticoagulants; Z88.0 Allergy status to penicillin; Z79.899 Other long term (current) drug therapy; Z79.82 Long term (current) use of aspirin; Z79.84 Long term (current) use of oral hypoglycemic drugs
CPT/HCPCS: 36415; 36430; 80053; 82272; 85025; 85610; 86850; 86900; 86901; 86920; 86922; 96360; 96361; 99285; P9016

== ENCOUNTER 2017-11-17 17:48 | Emergency (ER) | payer MEDICAID, OTHER ==
--- NOTE | 2017-11-17 18:59 | EDM.PDOC ---
ED HPI GENERAL MEDICAL PROBLEM - General Chief Complaint: General Stated Complaint: said pain [id number] Time Seen by Provider: 11/17/17 18:58 Source of Information: Reports: Patient History Limitations: Reports: No Limitations - History of Present Illness INITIAL COMMENTS - FREE TEXT/NARRATIVE: fell in bathroom Monday hit left chest, pain been getting worse, not seen anyone. feel out of breath. Right Flank Pain Score (Numeric/FACES): 10 - Related Data Allergies Allergy/AdvReac Type Severity Reaction Status Date / Time Penicillins Allergy Rash Verified 11/17/17 18:05 Home Meds: Home Meds Clopidogrel [Plavix] 75 mg PO DAILY 10/27/13 [History] Docusate Sodium [Dulcolax Stool Softener] 100 mg PO DAILY 08/13/14 [History] Lisinopril 10 tab PO DAILY 08/13/14 [History] Sertraline HCl [Zoloft] 100 mg PO DAILY 08/13/14 [History] metFORMIN HCl [Metformin HCl] 1,000 mg PO QAM 08/13/14 [History] Simvastatin [Zocor] 20 mg PO BEDTIME 12/09/14 [History] metFORMIN HCl [Metformin HCl] 500 mg PO BEDTIME 12/09/14 [History] Carvedilol 6.25 mg PO DAILY 02/27/16 [History] Cholecalciferol (Vitamin D3) [Vitamin D3] 1,000 units PO DAILY 02/27/16 [History ] Spironolactone [Aldactone] 25 mg PO DAILY 02/27/16 [History] Past Medical History HEENT History: Reports: None Cardiovascular History: Reports: CAD, High Cholesterol, Hypertension, [place] Other Cardiovascular History: family says she was on blood thinners for years, also was on some experimental stem cell med they don't know all the details Other Respiratory History: since she had her stroke she smokes a "lot now" Gastrointestinal History: Reports: None Genitourinary History: Reports: UTI, Recurrent [employer]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 Musculoskeletal History: Reports: Other (See Below) Other Musculoskeletal History: Pt has a history of a stroke and can not move right arm, can stand on right leg, but can not walk Neurological History: Reports: CVA, Neuropathy, Diabetic, Seizure, Speech Problems Psychiatric History: Reports: Anxiety, Depression Endocrine/Metabolic History: Reports: Diabetes, Type II Dermatologic History: Reports: None - Past Surgical History Cardiovascular Surgical History: Reports: Carotid Stents Musculoskeletal Surgical History: Reports: Shoulder Surgery Social & Family History - Family History Family Medical History: Noncontributory Cardiac: Reports: Afib, CAD, Heart Failure, High Cholesterol, Hypertension, [place], Stent Respiratory: Reports: Asthma, COPD, Sleep Apnea GI: Reports: Cholelithiasis : Reports: Renal Disease/Insufficiency Musculoskeletal: Reports: Arthritis Neurological: Reports: CVA Endocrine/Metabolic: Reports: Diabetes, type II, Obesity/MBI 30+ - Tobacco Use Smoking Status *Q: Current Some Day Smoker Years of Tobacco use: 30 Packs/Tins Daily: 1 - Caffeine Use Caffeine Use: Reports: Soda - Recreational Drug Use Recreational Drug Use: Yes Recreational Drug Type: Reports: Marijuana/Hashish - Living Situation & Occupation Living situation: Reports: with Family Occupation: Disabled ED ROS GENERAL - Review of Systems Review Of Systems: ROS reveals no pertinent complaints other than HPI. ED EXAM, GENERAL - Physical Exam Exam: See Below Exam Limited By: No Limitations General Appearance: Alert, WD/WN, Mild Distress, Other (discomfort) Ears: Hearing Grossly Normal Throat/Mouth: Normal Voice, No Airway Compromise Head: Atraumatic Neck: Supple, Non-Tender Respiratory/Chest: No Respiratory Distress, No Accessory Muscle Use, Rhonchi, Other (tender right lateral 6-7-8 region without ecchymosis crepitus). No: Decreased Breath Sounds Cardiovascular: Regular Rate, Rhythm GI/Abdominal: Soft, Non-Tender Neurological: Alert, Oriented, Normal Cognition, No Motor/Sensory Deficits Psychiatric: Flat Affect Skin Exam: Warm, Dry, Normal Color Lymphatic: No Adenopathy Course - Vital Signs Last Recorded V/S: Last Vital Signs Temp 37.1 C 11/17/17 19:16 Pulse 92 11/17/17 19:16 Resp 23 H 11/17/17 19:16 BP 103/53 L 11/17/17 19:16 Pulse Ox 96 11/17/17 19:16 - Orders/Labs/Meds Orders: Active Orders 24 hr Category Date Time Status Chest wo Cont [CT] Urgent Exams 11/17/17 18:54 Taken Meds: Medications Discontinued Medications Generic Name Dose Route Start Last Admin Trade Name Freq PRN Reason Stop Dose Admin Hydrocodone Bitart/Acetaminophen 1 tab 11/17/17 19:18 11/17/17 19:27 [place] 325-10 Mg PO 11/17/17 19:19 1 tab ONETIME ONE Administration - Re-Assessments/Exams Free Text/Narrative Re-Assessment/Exam: 11/17/17 20:36 results discussed with mother. Departure - Departure Time of Disposition: 20:37 Disposition: Home, Self-Care 01 Condition: Good Clinical Impression: Contusion of rib on right side Qualifiers: Encounter type: initial encounter Qualified Code(s): S20.211A - Contusion of right front wall of thorax, initial encounter - Discharge Information Instructions: Chest Contusion, Adult, [id number] Forms: ED Department Discharge Additional Instructions: 1) avoid further injury 2) take deep breaths regularly 3) try ice or heat to sore areas 4) recheck if develops fever, worsening pain, worse shortness of breath rx given; vicodin 5/325mg hs prn x 4 - My Orders Last 24 Hours: My Active Orders 11/17/17 18:54 Chest wo Cont [CT] Urgent - Assessment/Plan Last 24 Hours: My Active Orders 11/17/17 18:54 Chest wo Cont [CT] Urgent
[2017-11-17 19:17] VITALS: BP 103/53
[2017-11-17] MEDS ORDERED: Acetaminophen/HYDROcodone 325-10 MG Tab PO ONE (19:18)
== END 2017-11-17 20:45 | disposition home or self-care (01) ==
LOC: DL.ED 17:48
DX: S20.211A Contusion of right front wall of thorax, initial encounter (principal); E78.00 Pure hypercholesterolemia, unspecified; I10 Essential (primary) hypertension; I25.2 Old myocardial infarction; E11.9 Type 2 diabetes mellitus without complications; F17.210 Nicotine dependence, cigarettes, uncomplicated; Z88.0 Allergy status to penicillin; Z79.84 Long term (current) use of oral hypoglycemic drugs; Z79.899 Other long term (current) drug therapy; W19.XXXA Unspecified fall, initial encounter; Y92.002 Bathroom of unspecified non-institutional (private) residence as the place of occurrence of the external cause
CPT/HCPCS: 71250; 99284; A9270

== ENCOUNTER 2019-09-14 10:27 | Emergency (ER) | payer SELFPAY ==
[2019-09-14] MEDS ORDERED: Sodium Chloride 0.9% 10 ML Syringe FLUSH PRN (10:33)
[2019-09-14 10:52] VITALS: BP 135/78; PULSE 125
[2019-09-14] MEDS ORDERED: levETIRAcetam 1,500 MG in Sodium Chloride 0.9% 100 ML IV ONE (11:17)
[2019-09-14] MEDS ORDERED: Sodium Chloride 0.9% 1,000 ML IV ONE (11:17)
[2019-09-14 11:31] LABS: ANION GAP 24.8 mEq/L (7-13); CHLORIDE,CL 99 mmol/L (98-107); SODIUM,NA 138 mmol/L (136-145)
[2019-09-14 11:38] LABS: PTT,PARTIAL THROMBOPLSTIN TIME 22.4 SEC (22.0-34.0)
[2019-09-14] MEDS ORDERED: Levofloxacin/Dextrose 5%-Water 500 MG in Premix Bag 1 BAG IV ONE (11:48)
[2019-09-14 12:04] LABS: BASE EXCESS ARTERIAL -7 mmol/L ((-2)-(+3)); BICARBONATE,ARTERIAL 16.8 mmol/L (22-26); O2 DELIVERY DEVICE NON REBR MASK; O2 SATURATION ARTERIAL 82 % (95-100); PCO2 ARTERIAL 29 mmHg (35-45)
[2019-09-14 12:06] LABS: ALLEN TEST NOT PERFORMED; PO2 ARTERIAL 45 mmHg (70-100)
[2019-09-14] MEDS ORDERED: Ondansetron 4 MG/2 ML SDV IV ONE (12:24)
--- NOTE | 2019-09-14 13:43 | EDM.PDOC ---
Scribed by Sahra Muniz 09/14/19 1051 for Cheyanne Waterman MD ED HPI GENERAL MEDICAL PROBLEM - General Chief Complaint: Neuro Symptoms/Deficits Stated Complaint: STROKE Time Seen by Provider: 09/14/19 10:30 Source of Information: Reports: Patient, EMS, EMS Notes Reviewed, RN, RN Notes Reviewed History Limitations: Reports: No Limitations - History of Present Illness INITIAL COMMENTS - FREE TEXT/NARRATIVE: Patient presents to ER by [facility]. Patient was found by EMS postictal. Had seizure on scene and given 5mg Versed by EMS IM. Upon arrival, not responding and with rapid deep respirations. Seizure lasted approx. 4 minutes. Pt last seen by family at 0300HRS. Pt is non-verbal and unable to provide any Hx. Pt's mother reports pt had a CVA several years ago and has chronic right sided hemiparesis and aphasia, but can say a few words. Onset: Today, Unknown/Unsure Duration: Resolved Prior to Arrival Location: Reports: Generalized Improves with: Reports: None Worsens with: Reports: None Treatments WEBSITE DEVELOPER: Reports: Other Medication(s) (Versed 5mg IM x1 prior to arrival by EMS) - Related Data Allergies Allergy/AdvReac Type Severity Reaction Status Date / Time Penicillins Allergy Rash Verified 09/14/19 10:53 Home Meds: Home Meds Clopidogrel [Plavix] 75 mg PO DAILY 10/27/13 [History] Docusate Sodium [Dulcolax Stool Softener] 100 mg PO DAILY 08/13/14 [History] metFORMIN HCl [Metformin HCl] 1,000 mg PO BID 08/13/14 [History] Cholecalciferol (Vitamin D3) [Vitamin D3] 1,000 units PO DAILY 02/27/16 [History ] DULoxetine [Cymbalta] 60 mg PO DAILY 09/14/19 [History] Folic Acid 1 mg PO DAILY 09/14/19 [History] Magnesium Oxide [Magnesium] 400 mg PO DAILY 09/14/19 [History] Pantoprazole [ProTONIX] 40 mg PO DAILY 09/14/19 [History] Rivaroxaban [Xarelto] 20 mg PO DAILY 09/14/19 [History] atorvaSTATin Calcium [Atorvastatin Calcium] 40 mg PO DAILY 09/14/19 [History] Past Medical History HEENT History: Reports: None Cardiovascular History: Reports: CAD, High Cholesterol, Hypertension, [place] Other Cardiovascular History: family says she was on blood thinners for years, also was on some experimental stem cell med they don't know all the details Other Respiratory History: since she had her stroke she smokes a "lot now" Gastrointestinal History: Reports: None Genitourinary History: Reports: UTI, Recurrent MAT INSPECTOR History: Reports: None Musculoskeletal History: Reports: Other (See Below) Other Musculoskeletal History: Pt has a history of a stroke and can not move right arm, can stand on right leg, but can not walk Neurological History: Reports: CVA, Neuropathy, Diabetic, Seizure, Speech Problems Psychiatric History: Reports: Anxiety, Depression Endocrine/Metabolic History: Reports: Diabetes, Type II Dermatologic History: Reports: None - Past Surgical History Cardiovascular Surgical History: Reports: Carotid Stents Musculoskeletal Surgical History: Reports: Shoulder Surgery Social & Family History - Family History Family Medical History: Noncontributory Cardiac: Reports: Afib, CAD, Heart Failure, High Cholesterol, Hypertension, [place], Stent Respiratory: Reports: Asthma, COPD, Sleep Apnea GI: Reports: Cholelithiasis : Reports: Renal Disease/Insufficiency Musculoskeletal: Reports: Arthritis Neurological: Reports: CVA Endocrine/Metabolic: Reports: Diabetes, type II, Obesity/MBI 30+ - Caffeine Use Caffeine Use: Reports: Soda - Living Situation & Occupation Living situation: Reports: with Family Occupation: Disabled ED ROS GENERAL - Review of Systems Review Of Systems: Unable To Obtain Reason Not Obtained: unresponsive, postictal ED EXAM, NEURO - Physical Exam Exam: See Below Exam Limited By: Other (Unresponsive, postictal) General Appearance: No Apparent Distress, Other (Chronically ill appearing, postictal) Eye Exam: Bilateral Eye: PERRL Ears: Normal External Exam Nose: Normal Inspection, No Blood Throat/Mouth: Normal Lips, No Airway Compromise Head Exam: Atraumatic, Normocephalic Neck: Normal Inspection Respiratory/Chest: No Respiratory Distress, No Accessory Muscle Use, Crackles Cardiovascular: Regular Rate, Rhythm, Tachycardia GI/Abdominal: Normal Bowel Sounds, Soft, No Distention. No: Guarding, Rigid, Rebound (Female) Exam: Deferred Rectal (Female) Exam: Deferred Neurological: Withdraws to Pain, Other (Chronic right hemiparesis. Postictal on arrival.) Extremities: Normal Capillary Refill Skin Exam: Warm, Dry EKG INTERPRETATION EKG Date: 09/14/19 Time: 10:45 Rhythm: Other (sinus tachycardia) Rate (Beats/Min): 123 Jewett: LAD-Left Jewett Deviation P-Wave: Present QRS: Other (anterior Q waves) ST-T: Other (nonspecific T abnormalities, anterior-lateral leads.) QT: Normal Comparison: NA - No Prior EKG Course - Vital Signs Last Recorded V/S: Last Vital Signs Temp 97.6 F 09/14/19 10:50 Pulse 125 H 09/14/19 10:50 Resp 30 H 09/14/19 10:50 BP 135/78 09/14/19 10:50 Pulse Ox 98 09/14/19 10:50 - Orders/Labs/Meds Orders: Active Orders 24 hr Category Date Time Status Blood Glucose Check, Bedside [] ONETIME Care 09/14/19 10:32 Active EKG 12 Lead [EKG Documentation Completion] [] STAT Care 09/14/19 10:33 Active Peripheral IV Care [] . DIRECTED Care 09/14/19 10:33 Active CULTURE URINE [] Stat Lab 09/14/19 10:55 Received Sodium Chloride 0.9% [Saline Flush] Med 09/14/19 10:33 Active 10 ml FLUSH ASDIRECTED PRN Peripheral IV Insertion Adult [OM.PC] Stat Oth 09/14/19 10:33 Ordered Seizure Precautions [OM.PC] Routine Oth 09/14/19 10:32 Ordered Medication Orders Sodium Chloride (Saline Flush) 10 ml FLUSH ASDIRECTED PRN PRN Reason: Keep Vein Open Last Admin: 09/14/19 10:56 Dose: 10 ml Labs: Laboratory Tests 09/14/19 09/14/19 09/14/19 Range/Units 10:55 10:55 10:55 WBC (5.0-10.0) 10^3/uL RBC (4.2-5.4) 10^6/uL Hgb (12.0-16.0) g/dL Hct (37.0-47.0) % MCV (80-100) fL MCH (27.0-34.0) pg MCHC (33.0-35.0) g/dL Plt Count (150-450) 10^3/uL Neut % (Auto) (42.2-75.2) % Lymph % (Auto) (20.5-50.1) % [place] % (Auto) (2-8) % Eos % (Auto) (1.0-3.0) % Baso % (Auto) (0.0-1.0) % PT (9.0-12.0) SEC INR (0.9-1.2) APTT (22.0-34.0) SEC ABG pH (7.35-7.45) ABG pCO2 (35-45) mmHg ABG pO2 (70-100) mmHg ABG HCO3 (22-26) mmol/L ABG O2 Saturation (95-100) % ABG Base Excess ((-2)-(+3)) mmol/L Karri Test O2 Delivery Device Sodium (136-145) mmol/L Potassium (3.5-5.1) mmol/L Chloride (98-107) mmol/L Carbon Dioxide (21-32) mmol/L Anion Gap (7-13) mEq/L BUN (7-18) mg/dL Creatinine (0.55-1.02) mg/dL Est Cr Clr Drug Dosing mL/min Estimated GFR (MDRD) BUN/Creatinine Ratio (No establ ref range) Glucose (74-99) mg/dL Lactic Acid (0.4-2.0) mmol/L Calcium (8.5-10.1) mg/dL Total Bilirubin (0.2-1.0) mg/dL AST (15-37) U/L ALT (14-59) U/L Alkaline Phosphatase (46-116) U/L Lactate Dehydrogenase (81-234) U/L Creatine Kinase (16-191) U/L Troponin I (0.000-0.056) ng/mL Total Protein (6.4-8.2) g/dL Albumin (3.4-5.0) g/dL Globulin Albumin/Globulin Ratio Urine Color Yellow (YELLOW) Urine Appearance Slightly cloudy (CLEAR) Urine pH 5.5 (5.0-9.0) Ur Specific [place] >= 1.030 (1.005-1.030) Urine Protein 30 H (NEGATIVE) Urine Glucose (UA) 500 H (NEGATIVE) Urine Ketones Trace H (NEGATIVE) Urine Occult Blood Trace-lysed H (NEGATIVE) Urine Nitrite Positive H (NEGATIVE) Urine Bilirubin Negative (NEGATIVE) Urine Urobilinogen 0.2 (0.2-1.0) mg/dL Ur Leukocyte Esterase Negative (NEGATIVE) Urine RBC 0-5 /HPF Urine WBC 10-20 H (0-5/HPF) /HPF Ur Epithelial Cells Rare (NOT SEEN) /HPF Urine Bacteria Many H (0-FEW/HPF) /HPF Urine Yeast Few H (NOT SEEN) /HPF Urine HCG, Qual Negative Urine Opiates Screen Negative (NEGATIVE) Ur Oxycodone Screen Negative (NEGATIVE) Urine Methadone Screen Negative (NEGATIVE) Ur Barbiturates Screen Negative (NEGATIVE) U Tricyclic Antidepress Negative (NEGATIVE) Ur Phencyclidine Scrn Negative (NEGATIVE) Ur Amphetamine Screen Negative (NEGATIVE) U Methamphetamines Scrn Negative (NEGATIVE) Urine MDMA Screen Negative (NEGATIVE) U Benzodiazepines Scrn Negative (NEGATIVE) Urine Cocaine Screen Negative (NEGATIVE) U Marijuana (THC) Screen Positive H (NEGATIVE) Ethyl Alcohol (0) mg/dL Ketones 09/14/19 09/14/19 09/14/19 Range/Units 10:57 10:57 10:57 WBC 16.1 H (5.0-10.0) 10^3/uL RBC 4.55 (4.2-5.4) 10^6/uL Hgb 13.8 (12.0-16.0) g/dL Hct 42.7 (37.0-47.0) % MCV 93.8 D (80-100) fL MCH 30.3 (27.0-34.0) pg MCHC 32.3 L (33.0-35.0) g/dL Plt Count 338 (150-450) 10^3/uL Neut % (Auto) 91.3 H (42.2-75.2) % Lymph % (Auto) 6.3 L (20.5-50.1) % [place] % (Auto) 2.1 (2-8) % Eos % (Auto) 0.1 L (1.0-3.0) % Baso % (Auto) 0.2 (0.0-1.0) % PT 10.3 (9.0-12.0) SEC INR 1.1 (0.9-1.2) APTT 22.4 (22.0-34.0) SEC ABG pH (7.35-7.45) ABG pCO2 (35-45) mmHg ABG pO2 (70-100) mmHg ABG HCO3 (22-26) mmol/L ABG O2 Saturation (95-100) % ABG Base Excess ((-2)-(+3)) mmol/L Karri Test O2 Delivery Device Sodium 138 (136-145) mmol/L Potassium 3.8 (3.5-5.1) mmol/L Chloride 99 (98-107) mmol/L Carbon Dioxide 18 L (21-32) mmol/L Anion Gap 24.8 H (7-13) mEq/L BUN 8 (7-18) mg/dL Creatinine 1.14 H (0.55-1.02) mg/dL Est Cr Clr Drug Dosing 59.33 mL/min Estimated GFR (MDRD) 51 BUN/Creatinine Ratio 7.0 (No establ ref range) Glucose 369 H (74-99) mg/dL Lactic Acid (0.4-2.0) mmol/L Calcium 8.5 (8.5-10.1) mg/dL Total Bilirubin 0.3 (0.2-1.0) mg/dL AST 17 (15-37) U/L ALT 21 (14-59) U/L Alkaline Phosphatase 86 (46-116) U/L Lactate Dehydrogenase 167 (81-234) U/L Creatine Kinase 54 (16-191) U/L Troponin I < 0.017 (0.000-0.056) ng/mL Total Protein 7.9 (6.4-8.2) g/dL Albumin 3.6 (3.4-5.0) g/dL Globulin 4.3 Albumin/Globulin Ratio 0.8 Urine Color (YELLOW) Urine Appearance (CLEAR) Urine pH (5.0-9.0) Ur Specific [place] (1.005-1.030) Urine Protein (NEGATIVE) Urine Glucose (UA) (NEGATIVE) Urine Ketones (NEGATIVE) Urine Occult Blood (NEGATIVE) Urine Nitrite (NEGATIVE) Urine Bilirubin (NEGATIVE) Urine Urobilinogen (0.2-1.0) mg/dL Ur Leukocyte Esterase (NEGATIVE) Urine RBC /HPF Urine WBC (0-5/HPF) /HPF Ur Epithelial Cells (NOT SEEN) /HPF Urine Bacteria (0-FEW/HPF) /HPF Urine Yeast (NOT SEEN) /HPF Urine HCG, Qual Urine Opiates Screen (NEGATIVE) Ur Oxycodone Screen (NEGATIVE) Urine Methadone Screen (NEGATIVE) Ur Barbiturates Screen (NEGATIVE) U Tricyclic Antidepress (NEGATIVE) Ur Phencyclidine Scrn (NEGATIVE) Ur Amphetamine Screen (NEGATIVE) U Methamphetamines Scrn (NEGATIVE) Urine MDMA Screen (NEGATIVE) U Benzodiazepines Scrn (NEGATIVE) Urine Cocaine Screen (NEGATIVE) U Marijuana (THC) Screen (NEGATIVE) Ethyl Alcohol < 3 (0) mg/dL Ketones 09/14/19 09/14/19 09/14/19 Range/Units 10:57 10:57 11:58 WBC (5.0-10.0) 10^3/uL RBC (4.2-5.4) 10^6/uL Hgb (12.0-16.0) g/dL Hct (37.0-47.0) % MCV (80-100) fL MCH (27.0-34.0) pg MCHC (33.0-35.0) g/dL Plt Count (150-450) 10^3/uL Neut % (Auto) (42.2-75.2) % Lymph % (Auto) (20.5-50.1) % [place] % (Auto) (2-8) % Eos % (Auto) (1.0-3.0) % Baso % (Auto) (0.0-1.0) % PT (9.0-12.0) SEC INR (0.9-1.2) APTT (22.0-34.0) SEC ABG pH 7.38 (7.35-7.45) ABG pCO2 29 L (35-45) mmHg ABG pO2 45 L* (70-100) mmHg ABG HCO3 16.8 L (22-26) mmol/L ABG O2 Saturation 82 L (95-100) % ABG Base Excess -7 L ((-2)-(+3)) mmol/L Karri Test Not performed O2 Delivery Device Non rebr mask Sodium (136-145) mmol/L Potassium (3.5-5.1) mmol/L Chloride (98-107) mmol/L Carbon Dioxide (21-32) mmol/L Anion Gap (7-13) mEq/L BUN (7-18) mg/dL Creatinine (0.55-1.02) mg/dL Est Cr Clr Drug Dosing mL/min Estimated GFR (MDRD) BUN/Creatinine Ratio (No establ ref range) Glucose (74-99) mg/dL Lactic Acid 12.3 H* (0.4-2.0) mmol/L Calcium (8.5-10.1) mg/dL Total Bilirubin (0.2-1.0) mg/dL AST (15-37) U/L ALT (14-59) U/L Alkaline Phosphatase (46-116) U/L Lactate Dehydrogenase (81-234) U/L Creatine Kinase (16-191) U/L Troponin I (0.000-0.056) ng/mL Total Protein (6.4-8.2) g/dL Albumin (3.4-5.0) g/dL Globulin Albumin/Globulin Ratio Urine Color (YELLOW) Urine Appearance (CLEAR) Urine pH (5.0-9.0) Ur Specific [place] (1.005-1.030) Urine Protein (NEGATIVE) Urine Glucose (UA) (NEGATIVE) Urine Ketones (NEGATIVE) Urine Occult Blood (NEGATIVE) Urine Nitrite (NEGATIVE) Urine Bilirubin (NEGATIVE) Urine Urobilinogen (0.2-1.0) mg/dL Ur Leukocyte Esterase (NEGATIVE) Urine RBC /HPF Urine WBC (0-5/HPF) /HPF Ur Epithelial Cells (NOT SEEN) /HPF Urine Bacteria (0-FEW/HPF) /HPF Urine Yeast (NOT SEEN) /HPF Urine HCG, Qual Urine Opiates Screen (NEGATIVE) Ur Oxycodone Screen (NEGATIVE) Urine Methadone Screen (NEGATIVE) Ur Barbiturates Screen (NEGATIVE) U Tricyclic Antidepress (NEGATIVE) Ur Phencyclidine Scrn (NEGATIVE) Ur Amphetamine Screen (NEGATIVE) U Methamphetamines Scrn (NEGATIVE) Urine MDMA Screen (NEGATIVE) U Benzodiazepines Scrn (NEGATIVE) Urine Cocaine Screen (NEGATIVE) U Marijuana (THC) Screen (NEGATIVE) Ethyl Alcohol (0) mg/dL Ketones Negative Meds: Medications Generic Name Dose Route Start Last Admin Trade Name Freq PRN Reason Stop Dose Admin Sodium Chloride 10 ml 09/14/19 10:33 09/14/19 10:56 Saline Flush FLUSH 10 ml ASDIRECTED PRN Administration Keep Vein Open Discontinued Medications Generic Name Dose Route Start Last Admin Trade Name Freq PRN Reason Stop Dose Admin Levetiracetam 1,500 mg/ Sodium 115 mls @ 400 mls/hr 09/14/19 11:17 09/14/19 11:36 Chloride IV 09/14/19 11:31 400 mls/hr ONETIME ONE Administration Sodium Chloride 1,000 mls @ 999 mls/hr 09/14/19 11:17 09/14/19 11:34 Normal Saline IV 09/14/19 12:17 999 mls/hr .BOLUS ONE Administration Levofloxacin/Dextrose 500 mg/ 100 mls @ 100 mls/hr 09/14/19 11:48 09/14/19 12 :07 Premix IV 09/14/19 12:47 100 mls/hr ONETIME ONE Administration Ondansetron HCl 4 mg 09/14/19 12:24 09/14/19 12:41 Zofran IV 09/14/19 12:25 4 mg ONETIME ONE Administration - Radiology Interpretation Free Text/Narrative:: [facility] Final Radiology Report Call: [phone] assistance Online chat: [email or web address] Name: ALIN FUCHS Age: 48Years F Date: 09/14/2019 SSN: -- : 1970 Study: CT HEAD WO Requesting Physician: CHEYANNE WATERMAN Images: 149 Addl Studies: Provided Clinical History: Contrast: Without Contrast Medium: Contrast Amount: Contrast Method: Page 1 of 2 PROCEDURE INFORMATION: Exam: CT Head Without Contrast Exam date and time: 09/14/2019 10:36 AM Age: 48 years old Clinical indication: Weakness, extremity and weakness, facial; Right; Patient HX : Stroke code seizure HX CVA, HX seizures TECHNIQUE: Imaging protocol: Computed tomography of the head without contrast. Radiation optimization: All CT scans at this facility use at least one of these dose optimization techniques: automated exposure control; mA and/or kV adjustment per patient size (includes targeted exams where dose is matched to clinical indication); or iterative reconstruction. Other technique: STROKE PROTOCOL was implemented. COMPARISON: CT Head wo Cont 09/16/2014 10:59 PM FINDINGS: Brain: Encephalomalacia within the left MCA territory again demonstrated consistent with remote infarct. Ventricles: Ex vacuo dilation of the left lateral ventricle. No hydrocephalus. There is a normal-variant cavum septum pellucidum and vergae. Bones/joints: Unremarkable. No acute fracture. Sinuses: Visualized sinuses are unremarkable. No fluid levels. Mastoid air cells: Visualized mastoid air cells are well aerated. Soft tissues: Unremarkable. IMPRESSION: Remote left MCA territory infarct. No acute abnormalities otherwise demonstrated. ASSESSMENT: ALIN FUCHS | Final Radiology Report CONFIDENTIALITY STATEMENT This report is intended only for use by the referring physician, and only in accordance with law. If you received this in error, call [phone]. Page 2 of 2 ASPECTS ([place] Stroke Program Early CT Score) is 10. Thank you for allowing us to participate in the care of your patient. Dictated and Authenticated by: Parth Silva MD 09/14/2019 10:49 AM Central Time ([place] & [place]) [facility] - [facility] Final Radiology Report Call: [phone] assistance Online chat: [email or web address] Name: ALIN FUCHS Age: 48Years F Date: 09/14/2019 SSN: -- : 1970 Study: XR CHEST 1 VIEW FRONTAL Requesting Physician: CHEYANNE WATERMAN Images: 1 Addl Studies: Provided Clinical History: supine portable chest Contrast: Contrast Medium: Contrast Amount: Contrast Method: CONFIDENTIALITY STATEMENT This report is intended only for use by the referring physician, and only in accordance with law. If you received this in error, call [phone]. Page 1 of 1 PROCEDURE INFORMATION: Exam: XR Chest, 1 View Exam date and time: 09/14/2019 10:56 AM Age: 48 years old Clinical indication: Other: Cva/seizure suspected aspiration; Patient HX: Supine portable chest TECHNIQUE: Imaging protocol: XR of the chest Views: 1 view. COMPARISON: CR Chest 1V Frontal 12/18/2018 5:48 AM FINDINGS: Lungs: There is no focal pulmonary consolidation. Pleural space: There are no pleural effusions present. There is no evidence of pneumothorax. Heart/Mediastinum: The cardiac silhouette is within normal limits. Bones/joints: The visualized bones demonstrate no acute abnormalities. IMPRESSION: No acute cardiopulmonary disease. Thank you for allowing us to participate in the care of your patient. Dictated and Authenticated by: Parth Silva MD 09/14/2019 11:13 AM Central Time ([place] & [place]) - Re-Assessments/Exams Free Text/Narrative Re-Assessment/Exam: 09/14/19 13:10 Pt's mother insists the pt be transferred to [facility] Departure - Departure Time of Disposition: 13:41 Disposition: DC/Tfer to [facility] Condition: Undetermined Clinical Impression: Seizure, Yeast cystitis UTI (urinary tract infection) Qualifiers: Urinary tract infection type: acute cystitis Hematuria presence: without hematuria Qualified Code(s): N30.00 - Acute cystitis without hematuria Altered mental status Qualifiers: Altered mental status type: unspecified Qualified Code(s): R41.82 - Altered mental status, unspecified - Discharge Information *PRESCRIPTION DRUG MONITORING PROGRAM REVIEWED*: Not Applicable *COPY OF PRESCRIPTION DRUG MONITORING REPORT IN PATIENT EDUARDO: Not Applicable Forms: ED Department Discharge, Interfacility Transfer EMTALA Sepsis Event Note - Focused Exam Vital Signs: Vital Signs Temp Pulse Resp BP Pulse Ox 09/14/19 10:50 97.6 F 125 H 30 H 135/78 98 Date Exam was Performed: 09/14/19 Time Exam was Performed: 13:38 - My Orders Last 24 Hours: My Active Orders 09/14/19 10:32 Blood Glucose Check, Bedside [RC] ONETIME Seizure Precautions [OM.PC] Routine 09/14/19 10:33 EKG 12 Lead [EKG Documentation Completion] [RC] STAT Peripheral IV Care [RC] . DIRECTED Sodium Chloride 0.9% [Saline Flush] 10 ml FLUSH ASDIRECTED PRN Peripheral IV Insertion Adult [OM.PC] Stat 09/14/19 10:55 CULTURE URINE [RM] Stat - Assessment/Plan Last 24 Hours: My Active Orders 09/14/19 10:32 Blood Glucose Check, Bedside [RC] ONETIME Seizure Precautions [OM.PC] Routine 09/14/19 10:33 EKG 12 Lead [EKG Documentation Completion] [RC] STAT Peripheral IV Care [RC] . DIRECTED Sodium Chloride 0.9% [Saline Flush] 10 ml FLUSH ASDIRECTED PRN Peripheral IV Insertion Adult [OM.PC] Stat 09/14/19 10:55 CULTURE URINE [RM] Stat I have read and agree with the documentation that has been completed regarding this visit. By signing this record, I attest that the documentation was completed in my physical presence and is an accurate record of the encounter.
== END 2019-09-14 14:08 ==
LOC: DL.ED 10:27
DX: R56.9 Unspecified convulsions (principal); B37.41 Candidal cystitis and urethritis; R41.82 Altered mental status, unspecified; N30.00 Acute cystitis without hematuria; E11.42 Type 2 diabetes mellitus with diabetic polyneuropathy; I25.10 Atherosclerotic heart disease of native coronary artery without angina pectoris; E78.00 Pure hypercholesterolemia, unspecified; I10 Essential (primary) hypertension; I25.2 Old myocardial infarction; F41.9 Anxiety disorder, unspecified; F32.9 Major depressive disorder, single episode, unspecified; Z86.73 Personal history of transient ischemic attack (TIA), and cerebral infarction without residual deficits; Z79.84 Long term (current) use of oral hypoglycemic drugs; Z79.01 Long term (current) use of anticoagulants; Z79.899 Other long term (current) drug therapy; Z88.0 Allergy status to penicillin; Z79.02 Long term (current) use of antithrombotics/antiplatelets
CPT/HCPCS: 36415; 36600; 70450; 71045; 80053; 80305-QW; 80307; 81001; 81025; 82009; 82550; 82803; 82962; 83605; 83615; 84484; 85025; 85610; 85730; 87086; 87088; 87186; 93005; 93010; 96361; 96365; 96367; 96375; 99284; 99285-25; J1953; J1956; J2405; J7030; J7050

== ENCOUNTER 2019-12-09 22:39 | Emergency (ER) | payer MEDICAID, OTHER ==
[2019-12-09 22:59] VITALS: BP 118/69; PULSE 127
--- NOTE | 2019-12-09 23:51 | EDM.PDOC ---
ED HPI GENERAL MEDICAL PROBLEM - General Chief Complaint: Lower Extremity Injury/Pain Stated Complaint: BROKEN ANKLE Time Seen by Provider: 12/09/19 22:58 Source of Information: Reports: Patient History Limitations: Reports: Intoxication - History of Present Illness INITIAL COMMENTS - FREE TEXT/NARRATIVE: Patient comes emergency department today with complaints of an injury to her right foot. According to the patient's mother she left with her friends today and came back intoxicated complaining of her right foot pain and injury. Patient relates that she had been drinking alcohol today and she either fell on her right foot or someone stepped on her right foot she is not quite sure. Planes of pain in the mid foot on the right side. She denies any paresthesias. She denies any ankle pain. She denies any head neck or back pain. No other trauma. Right Foot Pain Score (Numeric/FACES): 4 - Related Data Allergies Allergy/AdvReac Type Severity Reaction Status Date / Time Penicillins Allergy Rash Verified 12/09/19 22:55 Home Meds: Home Meds Clopidogrel [Plavix] 75 mg PO DAILY 10/27/13 [History] Docusate Sodium [Dulcolax Stool Softener] 100 mg PO DAILY 08/13/14 [History] metFORMIN HCl [Metformin HCl] 1,000 mg PO BID 08/13/14 [History] Cholecalciferol (Vitamin D3) [Vitamin D3] 1,000 units PO DAILY 02/27/16 [History] DULoxetine [Cymbalta] 60 mg PO DAILY 09/14/19 [History] Folic Acid 1 mg PO DAILY 09/14/19 [History] Magnesium Oxide [Magnesium] 400 mg PO DAILY 09/14/19 [History] Pantoprazole [ProTONIX] 40 mg PO DAILY 09/14/19 [History] Rivaroxaban [Xarelto] 20 mg PO DAILY 09/14/19 [History] atorvaSTATin Calcium [Atorvastatin Calcium] 40 mg PO DAILY 09/14/19 [History] Past Medical History HEENT History: Reports: None Cardiovascular History: Reports: CAD, High Cholesterol, Hypertension, [place] Other Cardiovascular History: family says she was on blood thinners for years, also was on some experimental stem cell med they don't know all the details Other Respiratory History: since she had her stroke she smokes a "lot now" Gastrointestinal History: Reports: None Genitourinary History: Reports: UTI, Recurrent 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 Musculoskeletal History: Reports: Other (See Below) Other Musculoskeletal History: Pt has a history of a stroke and can not move right arm, can stand on right leg, but can not walk Neurological History: Reports: CVA, Neuropathy, Diabetic, Seizure, Speech Problems Psychiatric History: Reports: Anxiety, Depression Endocrine/Metabolic History: Reports: Diabetes, Type II Dermatologic History: Reports: None - Past Surgical History Cardiovascular Surgical History: Reports: Carotid Stents Musculoskeletal Surgical History: Reports: Shoulder Surgery Social & Family History - Family History Family Medical History: Noncontributory Cardiac: Reports: Afib, CAD, Heart Failure, High Cholesterol, Hypertension, [place], Stent Respiratory: Reports: Asthma, COPD, Sleep Apnea GI: Reports: Cholelithiasis : Reports: Renal Disease/Insufficiency Musculoskeletal: Reports: Arthritis Neurological: Reports: CVA Endocrine/Metabolic: Reports: Diabetes, type II, Obesity/MBI 30+ - Tobacco Use Smoking Status *Q: Current Every Day Smoker Years of Tobacco use: 0 Packs/Tins Daily: 0 - Caffeine Use Caffeine Use: Reports: None - Recreational Drug Use Recreational Drug Use: No - Living Situation & Occupation Living situation: Reports: with Family Occupation: Disabled Review of Systems - Review of Systems Review Of Systems: Comprehensive ROS is negative, except as noted in HPI. ED EXAM, GENERAL - Physical Exam Exam: See Below Free Text/Narrative:: Smells highly of alcoholic beverages Exam Limited By: Intoxication General Appearance: Alert, WD/WN Respiratory/Chest: No Respiratory Distress Cardiovascular: Normal Peripheral Pulses Peripheral Pulses: 2+: Posterior Tibial (L), Posterior Tibial (R), Dorsalis Pedis (L), Dorsalis Pedis (R) Extremities: No: Normal Inspection (She does have some swelling on the mid of the right foot. She has some bruising at the base of the third and fourth metatarsal. There is no overt bony deformity. She is able to flex and extend the toes appropriately. As well as the ankle. The rest of the right lower extremity is atraumatic.) Neurological: Alert, Oriented Psychiatric: Normal Affect, Tearful Skin Exam: Warm, Dry, Intact, Normal Color Course - Vital Signs Last Recorded V/S: Last Vital Signs Temp 97.4 F 12/09/19 22:55 Pulse 127 H 12/09/19 22:55 Resp 16 12/09/19 22:55 BP 118/69 12/09/19 22:55 Pulse Ox 100 12/09/19 22:55 - Radiology Interpretation Free Text/Narrative:: X-ray of the right foot per radiology shows only displaced fracture of the distal diaphysis of the third metatarsal bone. Less than half the width of the shaft. There is also an acute fracture transversely across the base of the second metatarsal bone. This is nondisplaced. - Re-Assessments/Exams Free Text/Narrative Re-Assessment/Exam: 12/10/19 Patient was given a walking boot. Cussed the findings of the fracture of the second and third metatarsal with the patient as well as her mother. We will have her follow-up with podiatry this week she may need some surgical pinning of the third metatarsal due to the displacement of the bone. Not going to give her any controlled substances for pain at this time his mother relates that she has an alcohol and drug problem in the past. The patient and mother are comfortable with this plan and their questions answered. Departure - Departure Time of Disposition: 23:48 Disposition: Home, Self-Care 01 Clinical Impression: Metatarsal boss of right foot Metatarsal bone fracture Qualifiers: Encounter type: initial encounter Metatarsal bone: third Fracture type: closed Fracture alignment: displaced Laterality: right Qualified Code(s): S92.331A - Displaced fracture of third metatarsal bone, right foot, initial encounter for closed fracture - Discharge Information Instructions: How to Use Cold Therapy, Metatarsal Fracture Referrals: PCP,None [Primary Care Provider] - Forms: ED Department Discharge Additional Instructions: Walking boot at all times. Okay to take off for showering and bathing. Tylenol and or Ibuprofen as needed for pain. ICE therapy to the foot. Contact the [facility] clinic in the morning and make an appointment with the practice office associate for follow up this week. You might need surgery for pinning of this fracture. Return to the ED if new or worsening symptoms. Sepsis Event Note (ED) - Evaluation Sepsis Screening Result: No Definite Risk - Focused Exam Vital Signs: Vital Signs Temp Pulse Resp BP Pulse Ox 12/09/19 22:55 97.4 F 127 H 16 118/69 100 - Assessment/Plan Assessment:: 2nd and 3rd metatarsal acute fracture. 3rd is somewhat displaced. Plan: Walking boot at all times. Okay to take off for showering and bathing. Tylenol and or Ibuprofen as needed for pain. ICE therapy to the foot. Contact the [facility] clinic in the morning and make an appointment with the practice office associate for follow up this week. You might need surgery for pinning of this fracture. Return to the ED if new or worsening symptoms.
--- NOTE | 2019-12-09 23:55 | CR ---
PROCEDURE INFORMATION: Exam: XR Right Foot Complete Exam date and time: 12/09/2019 11:25 PM Age: 49 years old Clinical indication: Pain; Foot; Right; Additional info: Right foot injury bruising to the 45th base of the TECHNIQUE: Imaging protocol: XR Right foot. Views: 3 or more views. COMPARISON: No relevant prior studies available. FINDINGS: Bones/joints: There is an acute fracture oriented obliquely through the distal diaphysis of the 3rd metatarsal bone. There is slight lateral displacement of the distal fracture fragment, by less than half the width of the shaft. There is an acute fracture oriented transversely across the base of the 2nd metatarsal bone, only well seen on the oblique projection. This fracture is nondisplaced. The bones otherwise appear intact. The joints are normally aligned and articulated. Soft tissues: There is soft tissue swelling. IMPRESSION: Acute fractures of the 2nd and 3rd metatarsal bones.
== END 2019-12-10 00:01 | disposition home or self-care (01) ==
LOC: DL.ED 22:39
DX: S92.331A Displaced fracture of third metatarsal bone, right foot, initial encounter for closed fracture (principal); S92.321A Displaced fracture of second metatarsal bone, right foot, initial encounter for closed fracture; I10 Essential (primary) hypertension; I25.10 Atherosclerotic heart disease of native coronary artery without angina pectoris; E78.00 Pure hypercholesterolemia, unspecified; E11.40 Type 2 diabetes mellitus with diabetic neuropathy, unspecified; F41.9 Anxiety disorder, unspecified; F32.9 Major depressive disorder, single episode, unspecified; F17.200 Nicotine dependence, unspecified, uncomplicated; Z86.73 Personal history of transient ischemic attack (TIA), and cerebral infarction without residual deficits; Z88.0 Allergy status to penicillin; Z79.02 Long term (current) use of antithrombotics/antiplatelets; Z79.01 Long term (current) use of anticoagulants; Z79.899 Other long term (current) drug therapy; Z79.84 Long term (current) use of oral hypoglycemic drugs; W50.0XXA Accidental hit or strike by another person, initial encounter
CPT/HCPCS: 73630-RT; 99283-25; 99284

== ENCOUNTER 2020-01-09 12:00 | Emergency (ER) | payer MEDICAID, OTHER ==
--- NOTE | 2020-01-09 12:03 | EDM.PDOC ---
ED HPI GENERAL MEDICAL PROBLEM - General Chief Complaint: Neuro Symptoms/Deficits Stated Complaint: IN BY AMBULANCE STROKE CODE Time Seen by Provider: 01/09/20 12:02 Source of Information: Reports: EMS, Old Records, RN, RN Notes Reviewed History Limitations: Reports: Altered Mental Status - History of Present Illness INITIAL COMMENTS - FREE TEXT/NARRATIVE: Pt arrives to ER from home by [facility] with EMS calling a stroke code just prior to arrival. The pt was reported by a family member to have had 2 seizures, the second lasting 3 minutes, followed by postictal confusion and brief combativeness. After the postictal phase the pt could not speak, so EMS called a stroke code, not realizing that the pt is completely aphasic at baseline due to an old CVA. Pt has Hx of seizure disorder and noncompliance with Keppra. Hx of CVA with aphasia and right hemiparesis. Pt is unable to give any history. Pt's Keppra bottle is about one quarter full of medication and has not been refilled since December 16, 2019. Onset: Today, Unknown/Unsure Duration: Resolved Prior to Arrival Location: Reports: Generalized Severity: Severe Improves with: Reports: None Worsens with: Reports: None Associated Symptoms: Reports: No Other Symptoms - Related Data Allergies Allergy/AdvReac Type Severity Reaction Status Date / Time Penicillins Allergy Rash Verified 12/09/19 22:55 Home Meds: Home Meds Clopidogrel [Plavix] 75 mg PO DAILY 10/27/13 [History] Docusate Sodium [Dulcolax Stool Softener] 100 mg PO DAILY 08/13/14 [History] metFORMIN HCl [Metformin HCl] 1,000 mg PO BID 08/13/14 [History] Cholecalciferol (Vitamin D3) [Vitamin D3] 1,000 units PO DAILY 02/27/16 [History] DULoxetine [Cymbalta] 60 mg PO DAILY 09/14/19 [History] Folic Acid 1 mg PO DAILY 09/14/19 [History] Magnesium Oxide [Magnesium] 400 mg PO DAILY 09/14/19 [History] Pantoprazole [ProTONIX] 40 mg PO DAILY 09/14/19 [History] Rivaroxaban [Xarelto] 20 mg PO DAILY 09/14/19 [History] atorvaSTATin Calcium [Atorvastatin Calcium] 40 mg PO DAILY 09/14/19 [History] Past Medical History HEENT History: Reports: None Cardiovascular History: Reports: CAD, High Cholesterol, Hypertension, [place] Other Cardiovascular History: family says she was on blood thinners for years, also was on some experimental stem cell med they don't know all the details Other Respiratory History: since she had her stroke she smokes a "lot now" Gastrointestinal History: Reports: None Genitourinary History: Reports: UTI, Recurrent 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 Musculoskeletal History: Reports: Other (See Below) Other Musculoskeletal History: Pt has a history of a stroke and can not move right arm, can stand on right leg, but can not walk Neurological History: Reports: CVA, Neuropathy, Diabetic, Seizure, Speech Problems Psychiatric History: Reports: Anxiety, Depression Endocrine/Metabolic History: Reports: Diabetes, Type II Dermatologic History: Reports: None - Past Surgical History Cardiovascular Surgical History: Reports: Carotid Stents Musculoskeletal Surgical History: Reports: Shoulder Surgery Social & Family History - Family History Family Medical History: Noncontributory Cardiac: Reports: Afib, CAD, Heart Failure, High Cholesterol, Hypertension, [place], Stent Respiratory: Reports: Asthma, COPD, Sleep Apnea GI: Reports: Cholelithiasis : Reports: Renal Disease/Insufficiency Musculoskeletal: Reports: Arthritis Neurological: Reports: CVA Endocrine/Metabolic: Reports: Diabetes, type II, Obesity/MBI 30+ - Caffeine Use Caffeine Use: Reports: None - Living Situation & Occupation Living situation: Reports: with Family Occupation: Disabled ED ROS GENERAL - Review of Systems Review Of Systems: Unable To Obtain Reason Not Obtained: Aphasia ED EXAM, NEURO - Physical Exam Exam: See Below Exam Limited By: Other (Aphasia) General Appearance: Alert, No Apparent Distress, Other (Chronically ill appearing) Eye Exam: Bilateral Eye: EOMI, Normal Inspection, PERRL Nose: Normal Inspection, Normal Mucosa, No Blood Throat/Mouth: Normal Lips, Normal Oropharynx, Normal Voice, No Airway Compromise, Other (No evidence of tongue biting) Head Exam: Atraumatic, Normocephalic Neck: Normal Inspection, Full Range of Motion Respiratory/Chest: No Respiratory Distress, Lungs Clear, Normal Breath Sounds, No Accessory Muscle Use, Chest Non-Tender Cardiovascular: Regular Rate, Rhythm, No Edema GI/Abdominal: Normal Bowel Sounds, Soft, Non-Tender, No Distention Neurological: Alert, Other (Chronic aphasia, chronic right sided deficits. No acute deficits.) Extremities: Normal Inspection Psychiatric: Flat Affect Skin Exam: Warm, Dry, Intact, Other (Superficial abrasion to left abdominal wall.) Course - Vital Signs Last Recorded V/S: Last Vital Signs Temp 96.7 F L 01/09/20 12:22 Pulse 88 01/09/20 12:22 Resp 16 01/09/20 12:22 BP 110/60 01/09/20 12:22 Pulse Ox 96 01/09/20 12:22 - Orders/Labs/Meds Orders: Active Orders 24 hr Category Date Time Status CULTURE URINE [RM] Stat Lab 01/09/20 13:39 Received LEVETIRACETAM, S [REF] Routine Lab 01/09/20 12:23 Received Ciprofloxacin [Ciprofloxacin HCl] Med 01/09/20 14:49 Once 500 mg PO ONETIME ONE Seizure Precautions [OM.PC] Routine Oth 01/09/20 12:58 Ordered Labs: Laboratory Tests 01/09/20 01/09/20 01/09/20 Range/Units 12:23 12:23 12:23 WBC 12.0 H (5.0-10.0) 10^3/uL RBC 4.41 (4.2-5.4) 10^6/uL Hgb 13.5 (12.0-16.0) g/dL Hct 41.5 (37.0-47.0) % MCV 94.1 (80-100) fL MCH 30.6 (27.0-34.0) pg MCHC 32.5 L (33.0-35.0) g/dL Plt Count 281 (150-450) 10^3/uL Neut % (Auto) 88.0 H (42.2-75.2) % Lymph % (Auto) 7.3 L (20.5-50.1) % [place] % (Auto) 3.9 (2-8) % Eos % (Auto) 0.5 L (1.0-3.0) % Baso % (Auto) 0.3 (0.0-1.0) % PT 10.0 (9.0-12.0) SEC INR 1.1 (0.9-1.2) APTT 21.3 L (22.0-34.0) SEC Sodium 137 (136-145) mmol/L Potassium 3.7 (3.5-5.1) mmol/L Chloride 101 (98-107) mmol/L Carbon Dioxide 23 (21-32) mmol/L Anion Gap 16.7 H (7-13) mEq/L BUN 8 (7-18) mg/dL Creatinine 0.76 (0.55-1.02) mg/dL Est Cr Clr Drug Dosing TNP Estimated GFR (MDRD) > 60 BUN/Creatinine Ratio 10.5 (No establ ref range) Glucose 304 H (74-99) mg/dL Calcium 8.0 L (8.5-10.1) mg/dL Total Bilirubin 0.3 (0.2-1.0) mg/dL AST 19 (15-37) U/L ALT 20 (14-59) U/L Alkaline Phosphatase 87 (46-116) U/L Creatine Kinase 39 (16-191) U/L C-Reactive Protein 0.3 (0.0-0.9) mg/dL Total Protein 6.8 (6.4-8.2) g/dL Albumin 3.1 L (3.4-5.0) g/dL Globulin 3.7 Albumin/Globulin Ratio 0.84 Urine Color (YELLOW) Urine Appearance (CLEAR) Urine pH (5.0-9.0) Ur Specific [place] (1.005-1.030) Urine Protein (NEGATIVE) Urine Glucose (UA) (NEGATIVE) Urine Ketones (NEGATIVE) Urine Occult Blood (NEGATIVE) Urine Nitrite (NEGATIVE) Urine Bilirubin (NEGATIVE) Urine Urobilinogen (0.2-1.0) mg/dL Ur Leukocyte Esterase (NEGATIVE) Urine RBC /HPF Urine WBC (0-5/HPF) /HPF Ur Epithelial Cells (NOT SEEN) /HPF Amorphous Sediment (NOT SEEN) /HPF Urine Bacteria (0-FEW/HPF) /HPF Urine Mucus (NOT SEEN) /LPF Urine Opiates Screen (NEGATIVE) Ur Oxycodone Screen (NEGATIVE) Urine Methadone Screen (NEGATIVE) Ur Barbiturates Screen (NEGATIVE) U Tricyclic Antidepress (NEGATIVE) Ur Phencyclidine Scrn (NEGATIVE) Ur Amphetamine Screen (NEGATIVE) U Methamphetamines Scrn (NEGATIVE) Urine MDMA Screen (NEGATIVE) U Benzodiazepines Scrn (NEGATIVE) Urine Cocaine Screen (NEGATIVE) U Marijuana (THC) Screen (NEGATIVE) Ethyl Alcohol < 3 (0) mg/dL 01/09/20 01/09/20 Range/Units 13:39 13:39 WBC (5.0-10.0) 10^3/uL RBC (4.2-5.4) 10^6/uL Hgb (12.0-16.0) g/dL Hct (37.0-47.0) % MCV (80-100) fL MCH (27.0-34.0) pg MCHC (33.0-35.0) g/dL Plt Count (150-450) 10^3/uL Neut % (Auto) (42.2-75.2) % Lymph % (Auto) (20.5-50.1) % [place] % (Auto) (2-8) % Eos % (Auto) (1.0-3.0) % Baso % (Auto) (0.0-1.0) % PT (9.0-12.0) SEC INR (0.9-1.2) APTT (22.0-34.0) SEC Sodium (136-145) mmol/L Potassium (3.5-5.1) mmol/L Chloride (98-107) mmol/L Carbon Dioxide (21-32) mmol/L Anion Gap (7-13) mEq/L BUN (7-18) mg/dL Creatinine (0.55-1.02) mg/dL Est Cr Clr Drug Dosing Estimated GFR (MDRD) BUN/Creatinine Ratio (No establ ref range) Glucose (74-99) mg/dL Calcium (8.5-10.1) mg/dL Total Bilirubin (0.2-1.0) mg/dL AST (15-37) U/L ALT (14-59) U/L Alkaline Phosphatase (46-116) U/L Creatine Kinase (16-191) U/L C-Reactive Protein (0.0-0.9) mg/dL Total Protein (6.4-8.2) g/dL Albumin (3.4-5.0) g/dL Globulin Albumin/Globulin Ratio Urine Color Red (YELLOW) Urine Appearance Turbid (CLEAR) Urine pH 5.5 (5.0-9.0) Ur Specific [place] 1.025 (1.005-1.030) Urine Protein >=300 H (NEGATIVE) Urine Glucose (UA) 500 H (NEGATIVE) Urine Ketones Trace H (NEGATIVE) Urine Occult Blood Large H (NEGATIVE) Urine Nitrite Positive H (NEGATIVE) Urine Bilirubin Small H (NEGATIVE) Urine Urobilinogen 1.0 (0.2-1.0) mg/dL Ur Leukocyte Esterase Negative (NEGATIVE) Urine RBC Packed H /HPF Urine WBC 0-5 (0-5/HPF) /HPF Ur Epithelial Cells Rare (NOT SEEN) /HPF Amorphous Sediment Few (NOT SEEN) /HPF Urine Bacteria Few (0-FEW/HPF) /HPF Urine Mucus Rare (NOT SEEN) /LPF Urine Opiates Screen Negative (NEGATIVE) Ur Oxycodone Screen Negative (NEGATIVE) Urine Methadone Screen Negative (NEGATIVE) Ur Barbiturates Screen Negative (NEGATIVE) U Tricyclic Antidepress Negative (NEGATIVE) Ur Phencyclidine Scrn Negative (NEGATIVE) Ur Amphetamine Screen Negative (NEGATIVE) U Methamphetamines Scrn Negative (NEGATIVE) Urine MDMA Screen Negative (NEGATIVE) U Benzodiazepines Scrn Negative (NEGATIVE) Urine Cocaine Screen Negative (NEGATIVE) U Marijuana (THC) Screen Positive H (NEGATIVE) Ethyl Alcohol (0) mg/dL Meds: Medications Discontinued Medications Generic Name Dose Route Start Last Admin Trade Name Freq PRN Reason Stop Dose Admin Diazepam 10 mg 01/09/20 12:58 01/09/20 13:00 Valium IVPUSH 01/09/20 12:59 10 mg ONETIME ONE Administration Diazepam Confirm 01/09/20 12:59 01/09/20 13:10 Valium Administered 01/09/20 13:00 Not Given Dose 10 mg .ROUTE .STK-MED ONE Levetiracetam 1,500 mg/ Sodium 115 mls @ 400 mls/hr 01/09/20 12:05 01/09/20 12:52 Chloride IV 01/09/20 12:19 400 mls/hr ONETIME ONE Administration Sodium Chloride 1,000 mls @ 999 mls/hr 01/09/20 12:34 01/09/20 12:41 Normal Saline IV 01/09/20 13:34 999 mls/hr .BOLUS ONE Administration Ondansetron HCl 4 mg 01/09/20 12:34 01/09/20 12:41 Zofran IV 01/09/20 12:35 4 mg ONETIME ONE Administration - Radiology Interpretation Free Text/Narrative:: CT Head: large old CVA, no acute findings per Rad. report. Departure - Departure Time of Disposition: 14:50 Disposition: Home, Self-Care 01 Condition: Good Clinical Impression: Seizure, Noncompliance with medication regimen UTI (urinary tract infection) Qualifiers: Urinary tract infection type: acute cystitis Hematuria presence: without hematuria Qualified Code(s): N30.00 - Acute cystitis without hematuria - Discharge Information *PRESCRIPTION DRUG MONITORING PROGRAM REVIEWED*: Not Applicable *COPY OF PRESCRIPTION DRUG MONITORING REPORT IN PATIENT EDUARDO: Not Applicable Instructions: Seizure, Adult, [id number], Urinary Tract Infection, Adult Forms: ED Department Discharge Additional Instructions: Rx: Cipro 500mg Take your Keppra exactly as prescribed. Follow up in clinic in 3 to 5 days for recheck. Sepsis Event Note (ED) - Focused Exam Vital Signs: Vital Signs Temp Pulse Resp BP Pulse Ox 01/09/20 12:22 96.7 F L 88 16 110/60 96 - My Orders Last 24 Hours: My Active Orders 01/09/20 12:23 LEVETIRACETAM, S [REF] Routine 01/09/20 12:58 Seizure Precautions [OM.PC] Routine 01/09/20 13:39 CULTURE URINE [RM] Stat 01/09/20 14:49 Ciprofloxacin [Ciprofloxacin HCl] 500 mg PO ONETIME ONE - Assessment/Plan Last 24 Hours: My Active Orders 01/09/20 12:23 LEVETIRACETAM, S [REF] Routine 01/09/20 12:58 Seizure Precautions [OM.PC] Routine 01/09/20 13:39 CULTURE URINE [RM] Stat 01/09/20 14:49 Ciprofloxacin [Ciprofloxacin HCl] 500 mg PO ONETIME ONE
[2020-01-09] MEDS ORDERED: levETIRAcetam 1,500 MG in Sodium Chloride 0.9% 100 ML IV ONE (12:05)
[2020-01-09 12:25] VITALS: BP 110/60; PULSE 88
--- NOTE | 2020-01-09 12:25 | CT ---
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 Scan technique: Volume acquisition of data emergency unenhanced CT scan of the head and brain obtained with patient lying supine on the Siemens multislice scanner [place], [place]. All data archived in the PACS system for storage, reformatting axial/sagittal/coronal planes and study (bone/brain windows). Interpretation: Extensive encephalomalacia left parietal lobe in the distribution of the middle cerebral artery with underlying "ballooning" of the ipsilateral ventricle UNCHANGED in the interval since September exam. Generalized atrophy. Chronic, Subtle decreased attenuation contralateral right temporal lobe. No new supratentorial or posterior fossa mass lesion. No hydrocephalus. No sign of acute intracerebral, intraventricular or subarachnoid bleed. No extracerebral/intracranial epidural or subdural hematoma. Normal TMJs. Edentulous patient. Symmetric clear pneumatization of the paranasal and mastoid sinuses. CONCLUSION: Evidence of old cerebrovascular insult (MCA on the left). Generalized atrophy. No acute intracranial bleed. No new intracranial mass or sepsis.
[2020-01-09] MEDS ORDERED: Sodium Chloride 0.9% 1,000 ML IV ONE (12:34)
[2020-01-09] MEDS ORDERED: Ondansetron 4 MG/2 ML SDV IV ONE (12:34)
[2020-01-09 12:53] LABS: ANION GAP 16.7 mEq/L (7-13); CHLORIDE,CL 101 mmol/L (98-107); SODIUM,NA 137 mmol/L (136-145)
[2020-01-09 12:55] LABS: PTT,PARTIAL THROMBOPLSTIN TIME 21.3 SEC (22.0-34.0)
[2020-01-09] MEDS ORDERED: Ciprofloxacin 500 MG Tab PO ONE (14:49)
== END 2020-01-09 15:06 | disposition home or self-care (01) ==
LOC: DL.ED 12:00
DX: G40.909 Epilepsy, unspecified, not intractable, without status epilepticus (principal); N30.00 Acute cystitis without hematuria; S30.811A Abrasion of abdominal wall, initial encounter; I25.10 Atherosclerotic heart disease of native coronary artery without angina pectoris; E78.00 Pure hypercholesterolemia, unspecified; I10 Essential (primary) hypertension; I25.2 Old myocardial infarction; E11.40 Type 2 diabetes mellitus with diabetic neuropathy, unspecified; F41.9 Anxiety disorder, unspecified; F32.9 Major depressive disorder, single episode, unspecified; Z86.73 Personal history of transient ischemic attack (TIA), and cerebral infarction without residual deficits; Z79.01 Long term (current) use of anticoagulants; Z79.899 Other long term (current) drug therapy; Z91.14 Patient's other noncompliance with medication regimen; Z88.0 Allergy status to penicillin; Z79.02 Long term (current) use of antithrombotics/antiplatelets; X58.XXXA Exposure to other specified factors, initial encounter
CPT/HCPCS: 36415; 70450; 80053; 80177; 80305; 80307; 81001; 82550; 85025; 85610; 85730; 86140; 87086; 87088; 87186; 96365; 96375; 99285; J1953; J2405; J3360; J7030; J7050; 99284

== ENCOUNTER 2021-02-19 20:01 | Emergency (ER) | payer MEDICAID | END 2021-02-19 20:55 | disposition left against medical advice (07) | LOC: DL.ED 20:01 | DX: R22.0 Localized swelling, mass and lump, head (principal); Z53.21 Procedure and treatment not carried out due to patient leaving prior to being seen by health care provider ==

== ENCOUNTER 2021-07-28 14:57 | Emergency (ER) | payer MEDICAID ==
[2021-07-28] MEDS ORDERED: Ondansetron 4 MG/2 ML SDV IVPUSH ONE (15:25)
[2021-07-28 15:30] LABS: CHLORIDE,CL 97 mmol/L (98-107); SODIUM,NA 134 mmol/L (136-145)
[2021-07-28 16:15] LABS: AMPHETAMINES,URINE NEGATIVE (NEGATIVE); BARBITURATES,URINE NEGATIVE (NEGATIVE); BENZODIAZEPINE,URINE NEGATIVE (NEGATIVE); MDMA (ECSTASY), URINE NEGATIVE (NEGATIVE); METHADONE,URINE NEGATIVE (NEGATIVE); METHAMPHETAMINES,URINE NEGATIVE (NEGATIVE); OPIATES,URINE NEGATIVE (NEGATIVE); OXYCODONE,URINE NEGATIVE (NEGATIVE); PHENCYCLIDINE,URINE NEGATIVE (NEGATIVE); TCA,URINE NEGATIVE (NEGATIVE)
[2021-07-28] MEDS ORDERED: 50% Dextrose in Water 50 ML Syringe IVPUSH PRN (16:19)
[2021-07-28] MEDS ORDERED: Insulin Regular, Human 100 Units/ML 3 ML Vial IV ONE (16:19)
[2021-07-28] MEDS ORDERED: Glucagon,Human Recombinant 1 MG Vial IM PRN (16:19)
[2021-07-28] MEDS ORDERED: Sodium Chloride 0.9% 1,000 ML IV SCH (16:30)
[2021-07-28] MEDS ORDERED: levETIRAcetam in NaCl (iso-os) 500 MG in Premix Bag 1 BAG IV ONE ×2 (19:26)
[2021-07-29 05:15] VITALS: BP 95/57; PULSE 92
== END 2021-07-28 20:06 | disposition home or self-care (01) ==
LOC: DL.ED 14:57
DX: G40.909 Epilepsy, unspecified, not intractable, without status epilepticus (principal); E11.65 Type 2 diabetes mellitus with hyperglycemia; E11.40 Type 2 diabetes mellitus with diabetic neuropathy, unspecified; D68.9 Coagulation defect, unspecified; I25.10 Atherosclerotic heart disease of native coronary artery without angina pectoris; E78.00 Pure hypercholesterolemia, unspecified; I10 Essential (primary) hypertension; I25.2 Old myocardial infarction; Z86.73 Personal history of transient ischemic attack (TIA), and cerebral infarction without residual deficits; Z91.19 Patient's noncompliance with other medical treatment and regimen; Z88.0 Allergy status to penicillin; Z79.02 Long term (current) use of antithrombotics/antiplatelets; Z79.01 Long term (current) use of anticoagulants; Z79.84 Long term (current) use of oral hypoglycemic drugs; Z79.899 Other long term (current) drug therapy
CPT/HCPCS: 36415; 70450; 80053; 80305-QW; 80307; 81001; 82947; 83605; 83735; 85025; 85379; 85610; 93005; 96365; 96375; 99285-25; J1815-GY; J1953; J2405; J7030

== ENCOUNTER 2021-09-02 13:28 | Emergency (ER) | payer MEDICAID ==
[2021-09-02] MEDS ORDERED: levETIRAcetam in NaCl (iso-os) 1,000 MG in Premix Bag 1 BAG IV ONE ×2 (13:40)
[2021-09-02 14:16] LABS: AMPHETAMINES,URINE NEGATIVE (NEGATIVE); BARBITURATES,URINE NEGATIVE (NEGATIVE); BENZODIAZEPINE,URINE NEGATIVE (NEGATIVE); MDMA (ECSTASY), URINE NEGATIVE (NEGATIVE); METHADONE,URINE NEGATIVE (NEGATIVE); METHAMPHETAMINES,URINE NEGATIVE (NEGATIVE); OPIATES,URINE NEGATIVE (NEGATIVE); OXYCODONE,URINE NEGATIVE (NEGATIVE); PHENCYCLIDINE,URINE NEGATIVE (NEGATIVE); TCA,URINE NEGATIVE (NEGATIVE)
[2021-09-02] MEDS ORDERED: Ondansetron 4 MG/2 ML SDV IVPUSH ONE (14:37)
[2021-09-02] MEDS ORDERED: Sodium Chloride 0.9% 1,000 ML IV ONE (14:45)
[2021-09-02 14:46] LABS: ANION GAP 18.9 mEq/L (7-13); CHLORIDE,CL 103 mmol/L (98-107); SODIUM,NA 143 mmol/L (136-145)
[2021-09-02 15:12] VITALS: BP 126/68; PULSE 120
== END 2021-09-02 16:37 | disposition home or self-care (01) ==
LOC: DL.ED 13:28
DX: G40.909 Epilepsy, unspecified, not intractable, without status epilepticus (principal); N30.00 Acute cystitis without hematuria; I25.10 Atherosclerotic heart disease of native coronary artery without angina pectoris; E78.00 Pure hypercholesterolemia, unspecified; I10 Essential (primary) hypertension; I25.2 Old myocardial infarction; E11.40 Type 2 diabetes mellitus with diabetic neuropathy, unspecified; Z86.73 Personal history of transient ischemic attack (TIA), and cerebral infarction without residual deficits; Z88.0 Allergy status to penicillin; Z79.02 Long term (current) use of antithrombotics/antiplatelets; Z79.899 Other long term (current) drug therapy
CPT/HCPCS: 36415; 70450; 80053; 80305-QW; 80307; 81001; 82140; 83605; 83735; 84100; 84443; 85025; 86140; 87040; 87086; 87088; 87186; 93005; 93010; 96374; 96375; 99285; 99285-25; J1953; J2405; J7030

== ENCOUNTER 2022-02-07 09:20 | Emergency (ER) | payer MEDICAID ==
[2022-02-07 10:07] VITALS: BP 111/71; PULSE 92
[2022-02-07] MEDS ORDERED: Sodium Chloride 0.9% 10 ML Syringe FLUSH PRN (10:37)
[2022-02-07] MEDS ORDERED: levETIRAcetam in NaCl (iso-os) 1,500 MG in Premix Bag 1 BAG IV ONE ×2 (10:37)
[2022-02-07] MEDS ORDERED: cefTRIAXone 1 GM in Sodium Chloride 0.9% 50 ML IV ONE (11:18)
[2022-02-07 11:23] LABS: ANION GAP 15.1 mEq/L (7-13)
[2022-02-07] MEDS ORDERED: Sodium Chloride 0.9% 1,000 ML IV ONE (11:34)
== END 2022-02-07 13:45 | disposition home or self-care (01) ==
LOC: DL.ED 09:20
DX: R56.9 Unspecified convulsions (principal); N39.0 Urinary tract infection, site not specified; I25.10 Atherosclerotic heart disease of native coronary artery without angina pectoris; E78.00 Pure hypercholesterolemia, unspecified; I10 Essential (primary) hypertension; I25.2 Old myocardial infarction; E11.40 Type 2 diabetes mellitus with diabetic neuropathy, unspecified; Z86.73 Personal history of transient ischemic attack (TIA), and cerebral infarction without residual deficits; Z88.0 Allergy status to penicillin; Z79.899 Other long term (current) drug therapy; Z79.02 Long term (current) use of antithrombotics/antiplatelets; Z79.84 Long term (current) use of oral hypoglycemic drugs; Z91.19 Patient's noncompliance with other medical treatment and regimen
CPT/HCPCS: 36415; 71045; 80053; 81001; 82550; 82947; 83605; 85025; 86140; 87086; 87088; 87186; 96361; 96365; 96367; 99284; J0696; J1953; J3490; J7030

== ENCOUNTER 2022-05-23 07:30 | Emergency (ER) | payer MEDICAID ==
[2022-05-23 07:56] VITALS: BP 131/84; PULSE 127
[2022-05-23] MEDS: levETIRAcetam in NaCl (iso-os) 1,000 MG in Premix Bag 1 BAG IV ONE ×2 (07:56)
[2022-05-23] MEDS: LORazepam 2 MG/ML SDV IVPUSH ONE (08:00)
[2022-05-23 08:22] LABS: ANION GAP 19.1 mEq/L (7-13); CHLORIDE,CL 99 mmol/L (98-107); SODIUM,NA 138 mmol/L (136-145)
[2022-05-23 08:24] LABS: ACETAMINOPHEN 0 ug/mL (10-30 (Therapeutic)); ESTIMATED GFR 57 mL/min (>=60)
[2022-05-23] MEDS: Sodium Chloride 0.9% 1,000 ML IV ONE (08:34)
[2022-05-23 09:00] LABS: METHAMPHETAMINES,URINE NEGATIVE (NEGATIVE)
[2022-05-23 09:01] LABS: AMPHETAMINES,URINE NEGATIVE (NEGATIVE); BARBITURATES,URINE NEGATIVE (NEGATIVE); BENZODIAZEPINE,URINE NEGATIVE (NEGATIVE); MDMA (ECSTASY), URINE NEGATIVE (NEGATIVE); METHADONE,URINE NEGATIVE (NEGATIVE); OPIATES,URINE NEGATIVE (NEGATIVE); OXYCODONE,URINE NEGATIVE (NEGATIVE); PHENCYCLIDINE,URINE NEGATIVE (NEGATIVE); TCA,URINE NEGATIVE (NEGATIVE)
[2022-05-23] MEDS: cefTRIAXone 2 GM Vial IVPUSH ONE (11:09)
== END 2022-05-23 13:15 | disposition home or self-care (01) ==
LOC: DL.ED 07:30
DX: R56.9 Unspecified convulsions (principal); N30.00 Acute cystitis without hematuria; I25.10 Atherosclerotic heart disease of native coronary artery without angina pectoris; E78.00 Pure hypercholesterolemia, unspecified; I10 Essential (primary) hypertension; I25.2 Old myocardial infarction; E11.9 Type 2 diabetes mellitus without complications; Z88.0 Allergy status to penicillin; Z79.899 Other long term (current) drug therapy; Z79.84 Long term (current) use of oral hypoglycemic drugs; Z86.73 Personal history of transient ischemic attack (TIA), and cerebral infarction without residual deficits; Z91.199 Patient's noncompliance with other medical treatment and regimen due to unspecified reason
CPT/HCPCS: 36415; 70450; 72125; 80053; 80143; 80179; 80305; 80307; 81001; 82009; 82140; 82150; 83605; 83690; 83735; 84484; 85025; 87040; 87086; 87088; 87186; 93005; 96361; 96374; 96375; 99285; C1758; J0696; J1953; J2060; J7030

== ENCOUNTER 2023-09-14 07:59 | Inpatient (IN) | payer MEDICAID, OTHER ==
[2023-09-14] MEDS: levETIRAcetam in NaCl (iso-os) 2,000 MG in Premix Bag 1 BAG IV ONE (08:30)
[2023-09-14 08:38] LABS: BASOPHILS PERCENT AUTO 0.2 % (0.0-1.0); EOSINOPHILS PERCENT AUTO 0.6 % (1.0-3.0); HEMOGLOBIN 14.7 g/dL (12.0-16.0); LYMPHOCYTES PERCENT AUTO 13.5 % (20.5-50.1); MEAN CORPUSCULAR HEMOGLOBIN 32.1 pg (27.0-34.0); MEAN CORPUSCULAR HGB CONC 33.4 g/dL (33.0-35.0); MEAN CORPUSCULAR VOLUME 96.1 fL (80-100); MONOCYTES PERCENT AUTO 3.9 % (2-8); NEUTROPHILS PERCENT AUTO 81.8 % (42.2-75.2); PLATELET COUNT,PLT 308 10^3/uL (150-450); RED BLOOD CELL COUNT 4.58 10^6/uL (4.2-5.4); WHITE BLOOD CELL COUNT,WBC 18.1 10^3/uL (5.0-10.0)
[2023-09-14] MEDS: Sodium Chloride 0.9% 1,000 ML IV ONE ×2 (08:45→10:26)
[2023-09-14 08:56] LABS: A/G RATIO 0.7; ALANINE AMINOTRANSFERASE,ALT 16 U/L (14-59); ALBUMIN 3.5 g/dL (3.4-5.0); ALKALINE PHOSPHATASE 89 U/L (46-116); ANION GAP 22.7 mEq/L (7-13); ASPARTATE AMNIOTRANSFERASE,AST 15 U/L (15-37); BILIRUBIN TOTAL 0.5 mg/dL (0.2-1.0); BLOOD UREA NITROGEN,BUN 8 mg/dL (7-18); BUN/CREATININE RATIO 7.5 (No establ ref range); CALCIUM 8.7 mg/dL (8.5-10.1); CARBON DIOXIDE,CO2 18 mmol/L (21-32); CHLORIDE,CL 102 mmol/L (98-107); CREATININE 1.07 mg/dL (0.55-1.02); EST CRCL DRUG DOSING (CG) 55.97 mL/min; GLUCOSE RANDOM 371 mg/dL (70-99); POTASSIUM,K 3.7 mmol/L (3.5-5.1); PROTEIN TOTAL,TP 8.2 g/dL (6.4-8.2); SODIUM,NA 139 mmol/L (136-145)
[2023-09-14 08:57] LABS: ESTIMATED GFR 63 mL/min (>=60); ETHANOL BLOOD MEDICAL < 3 mg/dL (0)
[2023-09-14 09:27] LABS: LACTIC ACID 6.2 mmol/L (0.4-2.0)
[2023-09-14] MEDS: Cefepime 1 GM Vial IVPUSH ONE (09:28)
[2023-09-14 09:34] LABS: O2 DELIVERY DEVICE ROOM AIR
[2023-09-14 09:48] LABS: BASE EXCESS VENOUS -5.3 mmol/l ((-2)-(+3)); BICARBONATE,VENOUS 21 mmol/l (19-25); O2 SATURATION VENOUS 80.6 % (60-80); PCO2 VENOUS 48 mmHg (41-51); PH,VENOUS 7.27 (7.31-7.41); PO2 VENOUS 48 mmHg (35-42)
[2023-09-14 09:49] LABS: CORONAVIRUS COVID-19 NAA NEGATIVE (NEGATIVE); INFLUENZA A NAA NEGATIVE (NEGATIVE); INFLUENZA B NAA NEGATIVE (NEGATIVE); RESPIRATORY SYNCYTIAL VIR NAA NEGATIVE (NEGATIVE)
[2023-09-14 10:08] LABS: APPEARANCE,URINE TURBID (CLEAR); BILIRUBIN,URINE NEGATIVE (NEGATIVE); COLOR,URINE YELLOW (YELLOW); GLUCOSE,URINE 500 (NEGATIVE); KETONES,URINE NEGATIVE (NEGATIVE); LEUKOCYTE ESTERASE,URINE NEGATIVE (NEGATIVE); NITRITE,URINE POSITIVE (NEGATIVE); OCCULT BLOOD,URINE TRACE-INTACT (NEGATIVE); PH,URINE 6.5 (5.0-9.0); PROTEIN,URINE 30 (NEGATIVE); UROBILINOGEN,URINE 0.2 mg/dL (0.2-1.0)
[2023-09-14 10:11] LABS: AMPHETAMINES,URINE NEGATIVE (NEGATIVE); BARBITURATES,URINE NEGATIVE (NEGATIVE); BENZODIAZEPINE,URINE NEGATIVE (NEGATIVE); MDMA (ECSTASY), URINE NEGATIVE (NEGATIVE); METHADONE,URINE NEGATIVE (NEGATIVE); METHAMPHETAMINES,URINE NEGATIVE (NEGATIVE); OPIATES,URINE NEGATIVE (NEGATIVE); OXYCODONE,URINE NEGATIVE (NEGATIVE); PHENCYCLIDINE,URINE NEGATIVE (NEGATIVE); TCA,URINE NEGATIVE (NEGATIVE)
[2023-09-14 11:04] LABS: EPITHELIAL CELLS,URINE OCCASIONAL /HPF (NOT SEEN); RBC,URINE 0-5 /HPF (0-5); WBC,URINE 0-5 /HPF (0-5/HPF)
[2023-09-14 11:05] LABS: BACTERIA,URINE MANY /HPF (0-FEW/HPF)
[2023-09-14] MEDS ORDERED: Ondansetron 4 MG/2 ML SDV IVPUSH PRN (12:16)
[2023-09-14] MEDS ORDERED: Acetaminophen 325 MG Tab PO PRN (12:16)
[2023-09-14] MEDS ORDERED: Docusate Sodium 100 MG Cap PO PRN (12:16)
[2023-09-14] MEDS ORDERED: Magnesium Hydroxide 400 MG/5 ML Susp 30 ML Cup PO PRN (12:16)
[2023-09-14] MEDS ORDERED: Sodium Chloride 0.9% 10 ML Syringe FLUSH PRN (12:56)
[2023-09-14] MEDS ORDERED: Glucagon,Human Recombinant 1 MG Vial IM PRN (13:39)
[2023-09-14] MEDS ORDERED: 50% Dextrose in Water 50 ML Syringe IVPUSH PRN (13:39)
[2023-09-14] MEDS: Sodium Chloride 0.9% 1,000 ML IV SCH (13:50)
[2023-09-14] MEDS: Nystatin Topical Powder 30 GM Bottle TOP ONE ×2 (14:11→15:25)
[2023-09-14] MEDS ORDERED: Baclofen 10 MG Tab PO PRN (16:55)
[2023-09-14] MEDS: levETIRAcetam 500 MG Tab PO SCH (17:56)
[2023-09-14] MEDS: Docusate Sodium 100 MG Cap PO SCH (17:57)
[2023-09-14] MEDS: Cefepime 2 GM Vial IVPUSH SCH (21:41)
[2023-09-14] MEDS: Temazepam 15 MG Cap PO PRN (21:43)
[2023-09-14] MEDS: Insulin Lispro 100 Units/ML 3 ML Vial SUBCUT SCH (23:14)
[2023-09-14] MEDS: Rosuvastatin 10 MG Tab PO SCH (23:14)
[2023-09-15 06:12] LABS: BASOPHILS PERCENT AUTO 0.5 % (0.0-1.0); EOSINOPHILS PERCENT AUTO 0.4 % (1.0-3.0); HEMATOCRIT 38.6 % (37.0-47.0); HEMOGLOBIN 12.9 g/dL (12.0-16.0); LYMPHOCYTES PERCENT AUTO 24.6 % (20.5-50.1); MEAN CORPUSCULAR HEMOGLOBIN 31.9 pg (27.0-34.0); MEAN CORPUSCULAR HGB CONC 33.4 g/dL (33.0-35.0); MEAN CORPUSCULAR VOLUME 95.3 fL (80-100); MONOCYTES PERCENT AUTO 7.4 % (2-8); NEUTROPHILS PERCENT AUTO 67.1 % (42.2-75.2); PLATELET COUNT,PLT 243 10^3/uL (150-450); RED BLOOD CELL COUNT 4.05 10^6/uL (4.2-5.4); WHITE BLOOD CELL COUNT,WBC 7.6 10^3/uL (5.0-10.0)
[2023-09-15 06:30] LABS: ANION GAP 12.2 mEq/L (7-13); CREATININE 0.71 mg/dL (0.55-1.02); EST CRCL DRUG DOSING (CG) 84.35 mL/min; POTASSIUM,K 3.2 mmol/L (3.5-5.1)
[2023-09-15 06:34] LABS: MAGNESIUM 1.7 mg/dL (1.8-2.4)
[2023-09-15] MEDS: Enoxaparin 40 MG/0.4 ML Syringe SUBCUT SCH (08:14)
[2023-09-15] MEDS: Ferrous Sulfate 325 MG Tab PO SCH (08:15)
[2023-09-15] MEDS: Multivitamin Tab PO SCH (08:15)
[2023-09-15] MEDS: Magnesium Oxide 400 MG Tab PO SCH (08:15)
[2023-09-15] MEDS: Clopidogrel 75 MG Tab PO SCH (08:15)
[2023-09-15] MEDS: Folic Acid 1 MG Tab PO SCH (08:15)
[2023-09-15] MEDS: glipiZIDE 5 MG Tab PO SCH (08:15)
[2023-09-15] MEDS: DULoxetine 30 MG Cap PO SCH (08:15)
[2023-09-15] MEDS: Cholecalciferol (Vitamin D3) 25 MCG Tab PO SCH (08:16)
[2023-09-15] MEDS: Rivaroxaban 10 MG Tab PO SCH (08:16)
[2023-09-15] MEDS: Pantoprazole 40 MG Tab.CR PO SCH (08:16)
[2023-09-15] MEDS ORDERED: Nystatin Topical Powder 30 GM Bottle TOP PRN (08:45)
[2023-09-15] MEDS: Magnesium Oxide 400 MG Tab PO ONE (10:08)
[2023-09-15] MEDS: Nicotine 14 MG/24 Hr Patch TRDERM SCH (10:08)
[2023-09-15] MEDS: Potassium Chloride 10 MEQ Tab.ER PO ONE (10:08)
[2023-09-15 16:56] VITALS: BP 131/75; PULSE 88
[2023-09-15] MEDS ORDERED: Check Patch TRDERM SCH (21:00)
== END 2023-09-15 18:30 | disposition home or self-care (01) | DRG 872 ==
LOC: DL.ED 07:59 → DL.MS 11:23
PROVIDERS: ADMIT Family Medicine Adult Medicine; ATTEND Family Medicine Adult Medicine
DX: A41.9 Sepsis, unspecified organism (principal); N39.0 Urinary tract infection, site not specified; R56.9 Unspecified convulsions; I69.351 Hemiplegia and hemiparesis following cerebral infarction affecting right dominant side; G40.909 Epilepsy, unspecified, not intractable, without status epilepticus; L30.4 Erythema intertrigo; I25.10 Atherosclerotic heart disease of native coronary artery without angina pectoris; E78.00 Pure hypercholesterolemia, unspecified; I10 Essential (primary) hypertension; F41.9 Anxiety disorder, unspecified; E11.9 Type 2 diabetes mellitus without complications; R41.82 Altered mental status, unspecified; Z79.84 Long term (current) use of oral hypoglycemic drugs; F32.A Depression, unspecified; E11.40 Type 2 diabetes mellitus with diabetic neuropathy, unspecified; R62.7 Adult failure to thrive; F17.210 Nicotine dependence, cigarettes, uncomplicated; Z88.0 Allergy status to penicillin; Z68.23 Body mass index [BMI] 23.0-23.9, adult; I25.2 Old myocardial infarction; Z79.4 Long term (current) use of insulin; Z87.440 Personal history of urinary (tract) infections; Z79.899 Other long term (current) drug therapy; Z98.890 Other specified postprocedural states; Z79.01 Long term (current) use of anticoagulants; Z95.828 Presence of other vascular implants and grafts
CPT/HCPCS: 0241U; 36415; 71045; 73110; 80048; 80053; 80305; 80307; 81001; 82009; 82803; 82947; 83605; 83735; 84100; 84145; 85025; 87040; 87086; 96361; 96365; 96367; 96375; 97161; 97165; 99223; 99238; 99285; 87088; 87186; A9270-GY; C1758; J0692; J1650; J1953; J3370; J7030; J7050

== ENCOUNTER 2024-02-03 16:35 | Emergency (ER) | payer MEDICAID ==
[2024-02-03] MEDS: Ondansetron 4 MG/2 ML SDV IVPUSH ONE (16:41)
[2024-02-03 17:05] LABS: BASOPHILS PERCENT AUTO 0.3 % (0.0-1.0); HEMOGLOBIN 14.3 g/dL (12.0-16.0); LYMPHOCYTES PERCENT AUTO 9.5 % (20.5-50.1); MEAN CORPUSCULAR HEMOGLOBIN 32.9 pg (27.0-34.0); MEAN CORPUSCULAR VOLUME 96.8 fL (80-100); MONOCYTES PERCENT AUTO 2.8 % (2-8); NEUTROPHILS PERCENT AUTO 87.4 % (42.2-75.2); PLATELET COUNT,PLT 290 10^3/uL (150-450); RED BLOOD CELL COUNT 4.34 10^6/uL (4.2-5.4)
[2024-02-03 17:30] VITALS: PULSE 80
[2024-02-03 17:33] LABS: A/G RATIO 0.8; ALANINE AMINOTRANSFERASE,ALT 18 U/L (14-59); ALBUMIN 3.5 g/dL (3.4-5.0); ALKALINE PHOSPHATASE 75 U/L (46-116); ANION GAP 15.9 mEq/L (7-13); ASPARTATE AMNIOTRANSFERASE,AST 14 U/L (15-37); BILIRUBIN TOTAL 0.6 mg/dL (0.2-1.0); BLOOD UREA NITROGEN,BUN 9 mg/dL (7-18); BUN/CREATININE RATIO 10.8 (No establ ref range); CALCIUM 9.4 mg/dL (8.5-10.1); CARBON DIOXIDE,CO2 25 mmol/L (21-32); CHLORIDE,CL 99 mmol/L (98-107); CREATININE 0.83 mg/dL (0.55-1.02); EST CRCL DRUG DOSING (CG) 74.22 mL/min; GLUCOSE RANDOM 200 mg/dL (70-99); MAGNESIUM 1.5 mg/dL (1.8-2.4); POTASSIUM,K 3.9 mmol/L (3.5-5.1); PROTEIN TOTAL,TP 8.1 g/dL (6.4-8.2); SODIUM,NA 136 mmol/L (136-145)
[2024-02-03 17:36] LABS: C-REACTIVE PROTEIN < 0.50 ng/dL (<=0.50); ESTIMATED GFR 85 mL/min (>=60); LACTIC ACID 4.9 mmol/L (0.4-2.0)
[2024-02-03] MEDS: Sodium Chloride 0.9% 1,000 ML IV ONE (17:37)
[2024-02-03] MEDS: levETIRAcetam in NaCl (iso-os) 1,500 MG in Premix Bag 1 BAG IV ONE (17:37)
[2024-02-03 18:00] LABS: APPEARANCE,URINE TURBID (CLEAR); BILIRUBIN,URINE NEGATIVE (NEGATIVE); COLOR,URINE YELLOW (YELLOW); GLUCOSE,URINE 100 (NEGATIVE); KETONES,URINE NEGATIVE (NEGATIVE); LEUKOCYTE ESTERASE,URINE SMALL (NEGATIVE); NITRITE,URINE NEGATIVE (NEGATIVE); OCCULT BLOOD,URINE TRACE-INTACT (NEGATIVE); PH,URINE 5.5 (5.0-9.0); PROTEIN,URINE 30 (NEGATIVE)
[2024-02-03] MEDS: Magnesium Sulfate/Water 2 GM in Premix Bag 1 BAG IV ONE (18:08)
[2024-02-03] MEDS: Sodium Chloride 0.9% 10 ML Syringe FLUSH PRN (18:09)
[2024-02-03 18:13] LABS: BACTERIA,URINE MANY /HPF (0-FEW/HPF); EPITHELIAL CELLS,URINE MANY /HPF (NOT SEEN); MUCUS,URINE FEW /LPF (NOT SEEN); RBC,URINE 0-5 /HPF (0-5); WBC,URINE PACKED /HPF (0-5/HPF)
[2024-02-03] MEDS: cefTRIAXone 2 GM Vial IVPUSH ONE (18:51)
[2024-02-03] MEDS: Take Home: Ondansetron 4 MG Tab.DIS, 5 Tab Pack PO ONE (19:00)
[2024-02-03] MEDS: Take Home: Cephalexin 500 MG Cap, 6 Cap Pack PO ONE (19:00)
== END 2024-02-03 22:24 | disposition home or self-care (01) ==
LOC: DL.ED 16:35
DX: G40.909 Epilepsy, unspecified, not intractable, without status epilepticus (principal); N30.00 Acute cystitis without hematuria; I25.10 Atherosclerotic heart disease of native coronary artery without angina pectoris; E78.00 Pure hypercholesterolemia, unspecified; I10 Essential (primary) hypertension; I25.2 Old myocardial infarction; E11.40 Type 2 diabetes mellitus with diabetic neuropathy, unspecified; Z79.84 Long term (current) use of oral hypoglycemic drugs; Z79.899 Other long term (current) drug therapy; Z88.0 Allergy status to penicillin
CPT/HCPCS: 36415; 80053; 81001; 83605; 83735; 85025; 86140; 87086; 87088; 87186; 96365; 96375; 99285; A9270; C1758; J0696; J1953; J2405; J3475; J7030; Q0162; 99284; J3490

== ENCOUNTER 2024-08-11 16:07 | Inpatient (IN) | payer MEDICAID ==
[2024-08-11 16:39] LABS: O2 DELIVERY DEVICE ROOM AIR
[2024-08-11 16:40] LABS: BASE EXCESS VENOUS -1.3 mmol/l ((-2)-(+3)); BICARBONATE,VENOUS 24 mmol/l (19-25); O2 SATURATION VENOUS 45.5 % (60-80); PCO2 VENOUS 47 mmHg (41-51); PH,VENOUS 7.34 (7.31-7.41); PO2 VENOUS 31 mmHg (35-42)
[2024-08-11 16:42] LABS: BASOPHILS PERCENT AUTO 0.4 % (0.0-1.0); EOSINOPHILS PERCENT AUTO 0.1 % (1.0-3.0); HEMATOCRIT 39.8 % (37.0-47.0); HEMOGLOBIN 13.2 g/dL (12.0-16.0); LYMPHOCYTES PERCENT AUTO 6.7 % (20.5-50.1); MEAN CORPUSCULAR HEMOGLOBIN 31.7 pg (27.0-34.0); MEAN CORPUSCULAR HGB CONC 33.2 g/dL (33.0-35.0); MEAN CORPUSCULAR VOLUME 95.7 fL (80-100); MONOCYTES PERCENT AUTO 3.3 % (2-8); NEUTROPHILS PERCENT AUTO 89.5 % (42.2-75.2); PLATELET COUNT,PLT 232 10^3/uL (150-450); RED BLOOD CELL COUNT 4.16 10^6/uL (4.2-5.4); WHITE BLOOD CELL COUNT,WBC 13.5 10^3/uL (5.0-10.0)
[2024-08-11 16:56] LABS: HEMOGLOBIN A1C 7.2 % (<5.7)
[2024-08-11 17:06] LABS: ALANINE AMINOTRANSFERASE,ALT 19 U/L (14-59); ALBUMIN 3.1 g/dL (3.4-5.0); ALKALINE PHOSPHATASE 108 U/L (46-116); ANION GAP 15.5 mEq/L (7-13); ASPARTATE AMNIOTRANSFERASE,AST 13 U/L (15-37); BILIRUBIN TOTAL 0.4 mg/dL (0.2-1.0); BLOOD UREA NITROGEN,BUN 10 mg/dL (7-18); BUN/CREATININE RATIO 11.6 (No establ ref range); CALCIUM 9.2 mg/dL (8.5-10.1); CARBON DIOXIDE,CO2 25 mmol/L (21-32); CHLORIDE,CL 101 mmol/L (98-107); CREATINE KINASE,CK 42 U/L (16-191); CREATININE 0.86 mg/dL (0.55-1.02); GLUCOSE RANDOM 275 mg/dL (70-99); PHOSPHORUS 3.5 mg/dL (2.6-4.7); POTASSIUM,K 3.5 mmol/L (3.5-5.1); PROTEIN TOTAL,TP 8.2 g/dL (6.4-8.2); SODIUM,NA 138 mmol/L (136-145)
[2024-08-11 17:07] LABS: A/G RATIO 0.61; ESTIMATED GFR 81 mL/min (>=60); ETHANOL BLOOD MEDICAL < 3 mg/dL (0)
[2024-08-11] MEDS: levETIRAcetam in NaCl (iso-os) 1,000 MG in Premix Bag 1 BAG IV ONE (17:50)
[2024-08-11] MEDS: Iopamidol 755 Mg/ML 100 ML Bottle IVPUSH ONE (18:58)
[2024-08-11] MEDS ORDERED: Flumazenil 0.1 MG/ML 5 ML MDV IVPUSH PRN (19:07)
[2024-08-11] MEDS: LORazepam 2 MG/ML SDV IVPUSH ONE (19:11)
[2024-08-11] MEDS ORDERED: Acetaminophen 650 MG Supp RECTAL PRN (19:13)
[2024-08-11] MEDS ORDERED: Docusate Sodium 100 MG Cap PO PRN (19:13)
[2024-08-11] MEDS ORDERED: Ondansetron 4 MG/2 ML SDV IVPUSH PRN (19:13)
[2024-08-11] MEDS: Cefepime 2 GM Vial IVPUSH ONE (19:21)
[2024-08-11] MEDS: VANCOmycin 1 GM in Sodium Chloride 0.9% 250 ML IV ONE (19:22)
[2024-08-11] MEDS: Morphine 2 MG/ML SYRINGE IVPUSH PRN (19:30)
[2024-08-11] MEDS ORDERED: 50% Dextrose in Water 50 ML Syringe IVPUSH PRN (19:33)
[2024-08-11] MEDS ORDERED: Glucagon,Human Recombinant 1 MG Vial IM PRN (19:33)
[2024-08-11] MEDS: Sodium Chloride 0.9% 1,000 ML IV ONE ×2 (20:02→22:27)
[2024-08-11] MEDS: glipiZIDE 5 MG Tab PO SCH (22:24)
[2024-08-11] MEDS: diphenhydrAMINE 50 MG/ML SDV IVPUSH ONE (22:24)
[2024-08-11] MEDS: metFORMIN 500 MG Tab PO SCH (22:25)
[2024-08-11] MEDS: Nicotine 7 MG/24 Hr Patch TRDERM SCH (22:25)
[2024-08-11] MEDS: Permethrin 59 ML Bottle TOP ONE (22:25)
[2024-08-11] MEDS: Clopidogrel 75 MG Tab PO SCH (22:25)
[2024-08-11] MEDS: Insulin Lispro 100 Units/ML 3 ML Vial SUBCUT SCH (22:26)
[2024-08-11] MEDS: Rivaroxaban 10 MG Tab PO SCH (22:28)
[2024-08-12] MEDS: Sodium Chloride 0.9% 1,000 ML IV SCH (00:07)
[2024-08-12] MEDS: Pantoprazole 40 MG Tab.CR PO SCH (05:23)
[2024-08-12] MEDS ORDERED: Cefepime 2 GM Vial IVPUSH SCH (06:00)
[2024-08-12 07:35] LABS: BASOPHILS PERCENT AUTO 0.6 % (0.0-1.0); EOSINOPHILS PERCENT AUTO 2.1 % (1.0-3.0); HEMATOCRIT 32.7 % (37.0-47.0); HEMOGLOBIN 10.4 g/dL (12.0-16.0); MEAN CORPUSCULAR HGB CONC 31.8 g/dL (33.0-35.0); MEAN CORPUSCULAR VOLUME 97.3 fL (80-100); MONOCYTES PERCENT AUTO 8.6 % (2-8); NEUTROPHILS PERCENT AUTO 70.7 % (42.2-75.2); PLATELET COUNT,PLT 227 10^3/uL (150-450); RED BLOOD CELL COUNT 3.36 10^6/uL (4.2-5.4); WHITE BLOOD CELL COUNT,WBC 9.7 10^3/uL (5.0-10.0)
[2024-08-12 07:45] LABS: ANION GAP 17.1 mEq/L (7-13); CALCIUM 8.4 mg/dL (8.5-10.1); CREATININE 0.71 mg/dL (0.55-1.02); EST CRCL DRUG DOSING (CG) 66.58 mL/min; POTASSIUM,K 3.1 mmol/L (3.5-5.1)
[2024-08-12] MEDS: Cefepime 2 GM Vial IVPUSH SCH (09:18)
[2024-08-12] MEDS: VANCOmycin 1 GM in Sodium Chloride 0.9% 250 ML IV SCH (09:20)
[2024-08-12] MEDS: levETIRAcetam 500 MG Tab PO SCH (09:24)
[2024-08-12 11:49] LABS: APPEARANCE,URINE CLEAR (CLEAR); BILIRUBIN,URINE NEGATIVE (NEGATIVE); COLOR,URINE YELLOW (YELLOW); GLUCOSE,URINE NEGATIVE (NEGATIVE); KETONES,URINE NEGATIVE (NEGATIVE); LEUKOCYTE ESTERASE,URINE SMALL (NEGATIVE); NITRITE,URINE NEGATIVE (NEGATIVE); OCCULT BLOOD,URINE NEGATIVE (NEGATIVE); PH,URINE 5.5 (5.0-9.0); PROTEIN,URINE NEGATIVE (NEGATIVE); UROBILINOGEN,URINE 0.2 mg/dL (0.2-1.0)
[2024-08-12 11:58] LABS: HEMOGLOBIN A1C 7.3 % (<5.7)
[2024-08-12 12:03] LABS: AMORPHOUS SEDIMENT,URINE FEW /HPF (NOT SEEN); BACTERIA,URINE FEW /HPF (0-FEW/HPF); EPITHELIAL CELLS,URINE MANY /HPF (NOT SEEN); MUCUS,URINE MODERATE /LPF (NOT SEEN); RBC,URINE 0-5 /HPF (0-5); WBC,URINE 50-75 /HPF (0-5/HPF)
[2024-08-12] MEDS: Potassium Chloride 20 MEQ in Premix Bag 1 BAG IV ONE (12:26)
[2024-08-12] MEDS: Acetaminophen 325 MG Tab PO PRN (17:11)
[2024-08-12] MEDS ORDERED: Rivaroxaban 10 MG Tab PO SCH (18:00)
[2024-08-12] MEDS: levETIRAcetam in NaCl (iso-os) 500 MG in Premix Bag 1 BAG IV SCH (21:30)
[2024-08-13 06:49] LABS: BASOPHILS PERCENT AUTO 0.9 % (0.0-1.0); EOSINOPHILS PERCENT AUTO 10.7 % (1.0-3.0); HEMATOCRIT 32.4 % (37.0-47.0); HEMOGLOBIN 10.6 g/dL (12.0-16.0); LYMPHOCYTES PERCENT AUTO 30.7 % (20.5-50.1); MEAN CORPUSCULAR HEMOGLOBIN 31.7 pg (27.0-34.0); MEAN CORPUSCULAR HGB CONC 32.7 g/dL (33.0-35.0); MONOCYTES PERCENT AUTO 10.3 % (2-8); NEUTROPHILS PERCENT AUTO 47.4 % (42.2-75.2); PLATELET COUNT,PLT 212 10^3/uL (150-450); RED BLOOD CELL COUNT 3.34 10^6/uL (4.2-5.4); WHITE BLOOD CELL COUNT,WBC 5.6 10^3/uL (5.0-10.0)
[2024-08-13 07:18] LABS: ANION GAP 14.3 mEq/L (7-13); CALCIUM 8.5 mg/dL (8.5-10.1); CREATININE 0.73 mg/dL (0.55-1.02); EST CRCL DRUG DOSING (CG) 64.75 mL/min; POTASSIUM,K 3.3 mmol/L (3.5-5.1)
[2024-08-13] MEDS: Potassium Chloride 20 MEQ in Premix Bag 1 BAG IV ONE (08:38)
[2024-08-13] MEDS: levETIRAcetam 500 MG Tab PO SCH (08:39)
[2024-08-13 08:51] LABS: TOTAL IRON BINDING CAPACITY 230 ug/dL (250-450)
[2024-08-13 09:21] LABS: FOLIC ACID > 20.0 ng/mL (8.6-58.9)
[2024-08-13] MEDS: Cefdinir 250 MG/5 ML Susp 100 ML Bottle PO SCH ×2 (10:27→11:34)
[2024-08-13] MEDS: Permethrin 59 ML Bottle TOP ONE (14:20)
[2024-08-14 06:43] LABS: BASOPHILS PERCENT AUTO 0.7 % (0.0-1.0); EOSINOPHILS PERCENT AUTO 8.5 % (1.0-3.0); HEMATOCRIT 35.1 % (37.0-47.0); HEMOGLOBIN 11.8 g/dL (12.0-16.0); LYMPHOCYTES PERCENT AUTO 27.4 % (20.5-50.1); MEAN CORPUSCULAR HEMOGLOBIN 32.5 pg (27.0-34.0); MEAN CORPUSCULAR HGB CONC 33.6 g/dL (33.0-35.0); MEAN CORPUSCULAR VOLUME 96.7 fL (80-100); MONOCYTES PERCENT AUTO 9.8 % (2-8); NEUTROPHILS PERCENT AUTO 53.6 % (42.2-75.2); PLATELET COUNT,PLT 230 10^3/uL (150-450); RED BLOOD CELL COUNT 3.63 10^6/uL (4.2-5.4); WHITE BLOOD CELL COUNT,WBC 5.5 10^3/uL (5.0-10.0)
[2024-08-14 06:56] LABS: ANION GAP 13.5 mEq/L (7-13); CALCIUM 8.7 mg/dL (8.5-10.1); CREATININE 0.69 mg/dL (0.55-1.02); EST CRCL DRUG DOSING (CG) 68.51 mL/min; POTASSIUM,K 3.5 mmol/L (3.5-5.1)
[2024-08-14] MEDS ORDERED: Doxycycline Monohydrate 100 MG Cap PO SCH (09:00)
[2024-08-14] MEDS ORDERED: Sodium Chloride 0.9% 10 ML Syringe FLUSH PRN (23:09)
[2024-08-15] MEDS: Hydrocortisone 2.5% Crm 30 GM Tube TOP SCH (11:29)
[2024-08-16] MEDS: Hydrocortisone 2.5% Crm 30 GM Tube TOP SCH (05:02)
[2024-08-16 06:31] LABS: BASOPHILS PERCENT AUTO 1.3 % (0.0-1.0); EOSINOPHILS PERCENT AUTO 6.9 % (1.0-3.0); HEMATOCRIT 35.6 % (37.0-47.0); HEMOGLOBIN 11.4 g/dL (12.0-16.0); MEAN CORPUSCULAR HEMOGLOBIN 31.4 pg (27.0-34.0); MEAN CORPUSCULAR VOLUME 98.1 fL (80-100); MONOCYTES PERCENT AUTO 8.6 % (2-8); NEUTROPHILS PERCENT AUTO 52.2 % (42.2-75.2); PLATELET COUNT,PLT 293 10^3/uL (150-450); RED BLOOD CELL COUNT 3.63 10^6/uL (4.2-5.4); WHITE BLOOD CELL COUNT,WBC 5.5 10^3/uL (5.0-10.0)
[2024-08-16 06:50] LABS: ANION GAP 13.8 mEq/L (7-13); CREATININE 0.79 mg/dL (0.55-1.02); EST CRCL DRUG DOSING (CG) 59.83 mL/min; POTASSIUM,K 3.8 mmol/L (3.5-5.1)
[2024-08-16 07:30] VITALS: BP 100/52; PULSE 77
[2024-08-16] MEDS: FLU (Fluarix Triv) TS24-25(6MOS UP)/PF 45 MCG/0.5 ML Syringe IM ONE (10:52)
== END 2024-08-16 12:40 | disposition home or self-care (01) | DRG 871 ==
LOC: DL.ED 16:07 → EEVIPCON 19:00 → DL.MS 19:00
PROVIDERS: ADMIT Internal Medicine; ATTEND Internal Medicine
DX: A41.9 Sepsis, unspecified organism (principal); G92.8 Other toxic encephalopathy; L03.811 Cellulitis of head [any part, except face]; G81.91 Hemiplegia, unspecified affecting right dominant side; N39.0 Urinary tract infection, site not specified; E87.20 Acidosis, unspecified; F05 Delirium due to known physiological condition; E87.0 Hyperosmolality and hypernatremia; E46 Unspecified protein-calorie malnutrition; R65.20 Severe sepsis without septic shock; I25.10 Atherosclerotic heart disease of native coronary artery without angina pectoris; G40.909 Epilepsy, unspecified, not intractable, without status epilepticus; E78.00 Pure hypercholesterolemia, unspecified; I10 Essential (primary) hypertension; E11.40 Type 2 diabetes mellitus with diabetic neuropathy, unspecified; F32.A Depression, unspecified; F41.9 Anxiety disorder, unspecified; L89.159 Pressure ulcer of sacral region, unspecified stage; B86 Scabies; B85.0 Pediculosis due to Pediculus humanus capitis; E88.09 Other disorders of plasma-protein metabolism, not elsewhere classified; D53.9 Nutritional anemia, unspecified; T73.0XXA Starvation, initial encounter; F17.210 Nicotine dependence, cigarettes, uncomplicated; E87.6 Hypokalemia; Z74.01 Bed confinement status; Z98.890 Other specified postprocedural states; Z91.199 Patient's noncompliance with other medical treatment and regimen due to unspecified reason; Z86.73 Personal history of transient ischemic attack (TIA), and cerebral infarction without residual deficits; Z88.0 Allergy status to penicillin; Z79.899 Other long term (current) drug therapy; Z79.84 Long term (current) use of oral hypoglycemic drugs; Z79.01 Long term (current) use of anticoagulants; I25.2 Old myocardial infarction; Z79.02 Long term (current) use of antithrombotics/antiplatelets; Z68.23 Body mass index [BMI] 23.0-23.9, adult
CPT/HCPCS: 36415; 51702; 70450; 70496; 70498; 71045; 80048; 80053; 80202; 80307; 81001; 82550; 82607; 82746; 82803; 82947; 83036; 83550; 83605; 84100; 84484; 85025; 87040; 87077; 87086; 87186; 90656; 96365; 96375; 97161-GP; 97165-GO; 97530-GO; 99223; 99232; 99233; 99239; 99284; 99285-25; A9270-GY; G0008; J0692; J1200; J1815-GY; J1953; J2060; J2270; J3480; J7030; J7050; Q9967